=== PATIENT | female | born 1980 | race Caucasian/White ===

== ENCOUNTER 2023-09-29 14:55 | Outpatient (AMB) | payer OTHER, SELFPAY ==
--- NOTE | 2023-09-29 14:59 | A.OFFVIS_ITS ---
Vital Signs 09/29/23 15:09 Height 5 ft 5 in Weight 150 lb 9.211 oz BMI 25.1 BP 90/60 Blood Pressure Location Lt brachial Position Sitting Pulse 75 Pulse Source Pulse Oximeter Pulse Oximetry (%) 98 Oxygen Delivery Method Room Air Intake Visit Reasons: + SATINDER/CM Intake Note: Patient presents for SATINDER. Allergies latex Allergy (Mild, Verified 09/29/23 15:03) Rash Medication List - Last Reconciled 09/29/23 by Radha Cain MD ascorbic acid (vitamin C) 1 g PO DAILY cholecalciferol (vitamin D3) 25 mcg PO BID ferrous sulfate 325 mg PO BID HPI Comments Details: This is a 43-year-old female who presents for evaluation of a positive SATINDER. For the last 6-7 months patient has been having pain in her hands, feet, swelling of her right 3rd MCP. Morning stiffness her hands and feet lasting hours. She has been taking ibuprofen 800 mg Twice daily for her joint pain with some improvement. She was prescribed a prednisone taper briefly dramatic relief but she did not feel well while taking it. She denies any other symptoms such as skin rashes, fevers, weight loss. Denies any blood or frothy urine. Denies any current oral ulcers. Denies any significant hair loss. Patient has melasma on her face since her . She has known iron-deficiency anemia that has been attributed to heavy menses and copper IUD. Not want a medicated IUD as she wanted to avoid hormones. She is unaware of any family history of an autoimmune rheumatic disease. Denies any history of DVT/PE. 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 Female Reproductive History Menstrual Total pregnancies: 6 Number of Living Children: 3 Ab induced: 2 Ab spontaneous: 1 Review of Systems Const Denies fever(s) and Denies weight loss Musc Reports arthralgias, Reports joint swelling and Reports stiffness Skin/Breast Denies photosensitivity and Denies rash Physical Exam Vital Signs: Last Vital Signs Pulse 75 09/29/23 15:09 BP 90/60 09/29/23 15:09 Pulse Ox 98 09/29/23 15:09 Oxygen Delivery Method Room Air 09/29/23 15:09 BMI result Body Mass Index 25.1 Const General: cooperative, healthy appearing and comfortable Nutritional Appearance: average body habitus Orientation/consciousness: patient oriented x3 Limitations: no limitations HEENT Head: Yes normocephalic and Yes atraumatic Mouth: moist mucous membranes Resp Effort & Inspection: normal respiratory effort and able to speak in complete sentences Auscultation: clear to auscultation bilaterally Cardio Rate: regular rate Rhythm: regular rhythm GI Inspection: No distended Palpation (GI): Soft to palpation and nontender Skin Other: Melasma on face Neuro General: patient oriented x3 Extrem Other: Minimal right wrist swelling and pain with flexion and extension No tenderness No left wrist tenderness swelling or pain with flexion-extension Right 3rd MCP swelling and tenderness Few tender flexor tendons right hand osteoarthritic changes of both hands with prominent Heberden's nodes Normal range of motion of shoulders without pain Negative rotator cuff provocative maneuvers bilaterally No elbow pain with flexion and extension bilaterally No knee pain with full flexion-extension Right foot bunion and bunionette No MTP tenderness and negative MTP squeeze test bilaterally Normal nailfold capillaroscopy Results Reviewed Results Reviewed: Labs 06/2023? SATINDER 1-2560 speckled RF negative? Lyme screen negative? ESR 44 Uric acid 3.2 Ferritin 4 X-RAY EXAM OF HAND, 3+ VIEWS Exam Date: 07/15/2023 10:17 AM Ordering Diagnosis: Hand and foot pain, unspecified laterality ? ? Right hand, 3 views. History 3rd metacarpophalangeal joint pain and swelling. ? There is no evidence of fractures, dislocations or abnormal soft tissue calcifications.? There? is no evidence of bone erosions. ? CONCLUSIONS: Normal radiographs of the right hand. Assessment & Plan Assessment & Plan (1) SATINDER positive: Code(s): R76.8 - Other specified abnormal immunological findings in serum Category: Medical Plan: This is a 43-year-old female who presents for evaluation of a positive SATINDER in the context of bilateral hand and feet pain and stiffness, on exam she has right 3rd MCP swelling. Clinical picture consistent with new onset inflammatory arthritis. Will order further sub serologies to better understand her underlying autoimmune process. Follow-up after blood work is completed Plan I spent 46 minutes reviewing patient's chart, evaluating patient, ordering diagnostic workup, counseling patient and documenting in the chart Orders: Orders SATINDER Reflex Titer and Pattern Today M32.9 - Systemic lupus erythematosus, unspecified Anti DNA DS Antibody Today M32.9 - Systemic lupus erythematosus, unspecified Complement C3 Today M32.9 - Systemic lupus erythematosus, unspecified Complement C4 Today M32.9 - Systemic lupus erythematosus, unspecified Erythrocyte Sedimentation Rate Today M32.9 - Systemic lupus erythematosus, unspecified Protein Creatinine Ratio, Ur Today M32.9 - Systemic lupus erythematosus, unspecified Complete Blood Count Auto Diff Today M06.9 - Rheumatoid arthritis, unspecified T Spot TB Today Z11.7 - Encounter for testing for latent tuberculosis infection Angiotensin Converting Enzyme Today D86.9 - Sarcoidosis, unspecified Beta-2 Glycoprotein Antibody Today D68.62 - Lupus anticoagulant syndrome Lupus Anticoagulant Panel Today D68.62 - Lupus anticoagulant syndrome Anti Extractable Nuclear Ag Today M32.9 - Systemic lupus erythematosus, unspecified C Reactive Protein Today M32.9 - Systemic lupus erythematosus, unspecified DNA Double Stranded-Crithidia Today M32.9 - Systemic lupus erythematosus, unspecified Sjogren's Antibodies Today M32.9 - Systemic lupus erythematosus, unspecified UA w Microscopic Today M32.9 - Systemic lupus erythematosus, unspecified Cyclic Citrullinated Peptide Today M06.9 - Rheumatoid arthritis, unspecified Comprehensive Met. Panel Today M06.9 - Rheumatoid arthritis, unspecified Hepatitis A,B,C Profile Today Z11.59 - Encounter for screening for other viral diseases Immunofixation Pnl, Serum Today M06.9 - Rheumatoid arthritis, unspecified HIV Ab/Ag Today Z11.59 - Encounter for screening for other viral diseases Protein Electrophoresis, Serum Today M06.9 - Rheumatoid arthritis, unspecified Cardiolipin Antibodies Today D68.62 - Lupus anticoagulant syndrome Scleroderma 12 Panel Today M34.9 - Systemic sclerosis, unspecified Coding Level of Care Code New Pt Level 4 (17696) Diagnoses SATINDER positive R76.8
[2023-09-29 15:09] VITALS: BP 90/60; PULSE 75; O2SAT 98; BMI 25.1
== END 2023-09-29 15:39 | disposition home or self-care (01) ==
PROVIDERS: PCP Internal Medicine; Visit Provider Student in an Organized Health Care Education/Training Program
DX: R76.8 Other specified abnormal immunological findings in serum (principal)
CPT/HCPCS: 99204

== ENCOUNTER 2023-09-29 14:55 | Outpatient (REF) | payer OTHER, SELFPAY ==
[2023-09-29 16:39] LABS: MANUAL DIFF FLAG NO
[2023-09-29 16:45] LABS: Appearance Urine Clear; Color Urine Yellow; Glucose Urine UA Negative (Negative); Leukocyte Esterase Urine Trace (Negative); Nitrite Urine Negative (Negative); PH 5.5 (5.0-9.0); UMIC TRIGGER UA YES; Urine Blood Large (3+) (Negative); Urine Ketones Negative (Negative); Urine Protein Negative (Neg-Trace)
[2023-09-29 16:47] LABS: Bacteria Urine None Seen (None Seen); Hyaline Casts Urine 0-2 /LPF (0-2); RBC Urine >20 /HPF (0-2); WBC Urine 0-5 /HPF (0-5)
[2023-09-29 17:11] LABS: Creatinine Urine 43.95 mg/dL; Total Protein Urine Random < 7 mg/dL (<12)
[2023-09-29 17:23] LABS: Basophils Absolute Auto 0.1 X10*3/uL (0.0-0.2); Basophils Percent Auto 0.9 % (0-2); Eosinophils Absolute Auto 0.5 X10*3/uL (0.0-0.4); Eosinophils Percent Auto 5.9 % (0-4); Hematocrit 37.6 % (37.0-47.0); Hemoglobin 12.2 g/dl (12.0-16.0); Imm Gran Abs Auto 0.02 X10*3/uL (0.00-0.03); Imm Gran Pct Auto 0.3 % (0.0-0.4); Mean Corpuscular HGB Conc 32.4 g/dl (31.0-35.0); Mean Corpuscular Hemoglobin 28.1 pg (27.0-33.0); Mean Corpuscular Volume 86.6 fL (80.0-98.0); Mean Platelet Volume 9.2 fL (9.4-12.3); Monocytes Absolute Auto 0.6 X10*3/uL (0.1-1.2); Monocytes Percent Auto 8.2 % (2-11); Neutrophils Absolute Auto 4.7 x10*3/uL (2.0-8.3); Neutrophils Percent Auto 59.7 % (45-73); Platelet Count 471 X10*3/uL (160-400); Red Blood Count 4.34 X10*6/uL (4.20-5.50); Red Cell Distribution Width 15.6 % (11.0-16.0); White Blood Count 7.8 X10*3/uL (4.8-10.8)
[2023-09-29 17:40] LABS: Alanine Aminotransferase 7 U/L (0-31); Albumin Level 4.3 g/dL (3.5-5.0); Alkaline Phosphatase 58 U/L (39-117); Anion Gap 12 (12-20); Aspartate Amino Transferase 14 U/L (5-31); Bilirubin Total 0.1 mg/dL (0.0-1.0); Blood Urea Nitrogen 10 mg/dL (9-16); C Reactive Protein 0.24 mg/dL (< or = 0.50); Calcium 9.2 mg/dL (8.4-10.2); Carbon Dioxide 23 mmol/L (22-29); Chloride 109 mmol/L (96-108); Estimated Glomerular Filt Rate > 60; Glucose Random 90 mg/dL (60-115); Potassium 4.1 mmol/L (3.3-5.1); Sodium 140 mmol/L (135-145); Total Protein 7.7 g/dL (6.5-8.0)
[2023-09-29 18:27] LABS: Erythrocyte Sedimentation Rate 17 MM/HR (0-20)
[2023-09-30 08:17] LABS: HBS Num1 > 1000.00 mIU/mL (0-7.99); HBc Num1 0.18 S/CO (0.00-0.79); HBsAGNum1 0.29 S/CO (0.00-0.99); HIV AB/AG Nonreactive (Nonreactive); HIV Num 1 0.06 S/CO (0.00-0.99); Hepatitis A Antibody IgM 0.15 Index (0-0.79); Hepatitis B Core Antibody Nonreactive (Nonreactive); Hepatitis B Surface Antigen Negative (Negative); ~HepC Num1 0.12 S/CO (0.00-0.79); ~Hepatitis A Antibody IgM Nonreactive (Nonreactive); ~Hepatitis B Surface Antibody REACTIVE (Nonreactive); ~Hepatitis C Antibody Nonreactive (Nonreactive)
[2023-09-30 20:24] LABS: Cardiolipin IgG Ab <2.0 GPL-U/mL; Cardiolipin IgM Ab 2.2 MPL-U/mL
[2023-09-30 21:02] LABS: Anti DNA DS Antibody 2 IU/mL; Antibody to SS-A Antigen >8.0 POS AI (<1.0 NEG); Antibody to SS-B Antigen <1.0 NEG AI (<1.0 NEG); SM/Ribonucleoprotein Ab <1.0 NEG AI (<1.0 NEG); Smith Protein <1.0 NEG AI (<1.0 NEG)
[2023-10-01 08:48] LABS: Complement C3 59 mg/dL (83-193)
[2023-10-01 20:24] LABS: Cyclic Citrullinated Peptide >250 UNITS
[2023-10-01 22:28] LABS: IgA 248 mg/dL (47-310); IgG 1328 mg/dL (600-1640); IgM 89 mg/dL (50-300)
[2023-10-01 22:32] LABS: TS Negative Control Passed; TS Panel A 0; TS Panel B 0; TS Positive Control Passed; TSpotTB Negative (Negative)
[2023-10-02 20:07] LABS: Angiotensin Converting Enzyme 15 U/L (9-67)
[2023-10-03 18:22] LABS: Beta-2 Glycoprotein IgA <2.0 U/mL (<20.0); Beta-2 Glycoprotein IgG <2.0 U/mL (<20.0); Beta-2 Glycoprotein IgM 2.6 U/mL (<20.0)
[2023-10-05 21:19] LABS: Prot Elec - Alpha1 0.3 g/dL (0.2-0.3); Prot Elec - Alpha2 0.6 g/dL (0.5-0.9); Prot Elec - Beta 1 0.4 g/dL (0.4-0.6); Prot Elec - Beta 2 0.4 g/dL (0.2-0.5); Prot Elec - Gamma 1.2 g/dL (0.8-1.7)
[2023-10-06 16:04] LABS: DNAds, Crithidia Antibody Positive (Negative)
[2023-10-06 16:32] LABS: DNAds, Crithidia Antibody 1:20 titer (<1:10)
[2023-10-07 05:53] LABS: PTT (LAC) Screen 30 sec (<=40)
[2023-10-09 14:33] LABS: Centromere Protein A Ab <11 SI (<11); Centromere Protein B Ab <11 SI (<11); Fibrillarin Ab <11 SI (<11); PM SCL 100 Ab <11 SI (<11); PM SCL 75 Ab <11 SI (<11); RNA Polymerase III RP11 Ab <11 SI (<11); RNA Polymerase III RP155 Ab <11 SI (<11); SCL-70 Extractable Nuclear Ab <11 SI (<11); Th-To Ab <11 SI (<11); U1 SNRNP RNP 70KD <11 SI (<11); U1 SNRNP RNP A <11 SI (<11); U1 SNRNP RNP C <11 SI (<11)
[2023-10-09 15:44] LABS: Anti Nuclear Antibody Pattern Nuclear, Speckled; Anti Nuclear Antibody Screen POSITIVE (NEGATIVE)
== END 2023-09-29 14:56 | disposition home or self-care (01) ==
LOC: HO.LAB 14:55
PROVIDERS: PCP Internal Medicine; Visit Provider Student in an Organized Health Care Education/Training Program
DX: Z11.4 Encounter for screening for human immunodeficiency virus [HIV] (principal); Z11.59 Encounter for screening for other viral diseases; Z11.1 Encounter for screening for respiratory tuberculosis; M32.9 Systemic lupus erythematosus, unspecified; D68.62 Lupus anticoagulant syndrome; M34.9 Systemic sclerosis, unspecified; M06.9 Rheumatoid arthritis, unspecified; D86.9 Sarcoidosis, unspecified; R76.8 Other specified abnormal immunological findings in serum; Z72.89 Other problems related to lifestyle
CPT/HCPCS: 36415; 80053; 81001; 82164; 82570; 82784; 84156; 84165; 84182; 85025; 85597; 85598; 85613; 85652; 85730; 86038; 86039; 86140; 86146; 86147; 86160; 86200; 86225; 86235; 86255; 86334; 86481; 86704; 86706; 86709; 86803; 87340; 87389

== ENCOUNTER 2023-12-02 10:14 | Outpatient (AMB) | payer OTHER, SELFPAY ==
[2023-12-02 10:19] VITALS: BP 92/58; PULSE 59; O2SAT 100; BMI 25.3
--- NOTE | 2023-12-02 10:19 | A.OFFVIS_ITS ---
Vital Signs 12/02/23 10:19 Height 5 ft 5 in Weight 152 lb BMI 25.3 BP 92/58 L Blood Pressure Location Lt brachial Position Sitting Pulse 59 Pulse Source Pulse Oximeter Pulse Oximetry (%) 100 Oxygen Delivery Method Room Air Intake Visit Reasons: SATINDER +ve Intake Note: Patient is here for test results after blood work, she tested + SATINDER. Allergies latex Allergy (Mild, Verified 12/02/23 10:23) Rash Medication List - Last Reconciled 12/02/23 by Radha Cain MD ascorbic acid (vitamin C) 1 g PO DAILY ascorbic acid-collagen 30-833.3 mg (Collagen Skin Renewal) tabs PO biotin mcg PO cholecalciferol (vitamin D3) 25 mcg PO BID ferrous sulfate 325 mg PO BID hydroxychloroquine Take 2 tabs daily x5 days a week and 1 tab daily x2 days a week prednisone Take 2 tabs daily for 1 month then remain on 1 tab daily HPI Comments Details: This is a 43-year-old female who presents for follow-up after completion of her diagnostic workup. She has been taking prednisone as prescribed. She has been taking 5 mg daily. She states that the prednisone completely took the pain swelling and numbness away of her hands and feet. She stopped it 2 days ago and symptoms returned. She denies any other symptoms. Initial history: This is a 43-year-old female who presents for evaluation of a positive SATINDER. For the last 6-7 months patient has been having pain in her hands, feet, swelling of her right 3rd MCP. Morning stiffness her hands and feet lasting hours. She has been taking ibuprofen 800 mg Twice daily for her joint pain with some improvement. She was prescribed a prednisone taper briefly dramatic relief but she did not feel well while taking it. She denies any other symptoms such as skin rashes, fevers, weight loss. Denies any blood or frothy urine. Denies any current oral ulcers. Denies any significant hair loss. Patient has melasma on her face since her . She has known iron- deficiency anemia that has been attributed to heavy menses and copper IUD. Not want a medicated IUD as she wanted to avoid hormones. She is unaware of any fa sergio history of an autoimmune rheumatic disease. Denies any history of DVT/PE. 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 Female Reproductive History Menstrual Total pregnancies: 6 Number of Living Children: 3 Ab induced: 2 Ab spontaneous: 1 Review of Systems Const Denies fever(s) and Denies weight loss Musc Reports arthralgias, Reports joint swelling and Reports stiffness Skin/Breast Denies photosensitivity and Denies rash Physical Exam Vital Signs: Last Vital Signs Pulse 59 12/02/23 10:19 BP 92/58 L 12/02/23 10:19 Pulse Ox 100 12/02/23 10:19 Oxygen Delivery Method Room Air 12/02/23 10:19 BMI result Body Mass Index 25.3 Const General: cooperative, healthy appearing and comfortable Nutritional Appearance: average body habitus Orientation/consciousness: patient oriented x3 Limitations: no limitations HEENT Head: Yes normocephalic and Yes atraumatic Mouth: moist mucous membranes Resp Effort & Inspection: normal respiratory effort and able to speak in complete sentences Auscultation: clear to auscultation bilaterally Cardio Rate: regular rate Rhythm: regular rhythm GI Inspection: No distended Palpation (GI): Soft to palpation and nontender Skin Other: Melasma on face Neuro General: patient oriented x3 Extrem Other: Minimal right wrist swelling and pain with flexion and extension No tenderness No left wrist tenderness swelling or pain with flexion-extension Right 3rd MCP swelling and tenderness Few tender flexor tendons right hand osteoarthritic changes of both hands with prominent Heberden's nodes Normal range of motion of shoulders without pain Negative rotator cuff provocative maneuvers bilaterally No elbow pain with flexion and extension bilaterally No knee pain with full flexion-extension Right foot bunion and bunionette No MTP tenderness and negative MTP squeeze test bilaterally Normal nailfold capillaroscopy Results Reviewed Results Reviewed: Labs 06/2023? SATINDER 1-2560 speckled RF negative? Lyme screen negative? ESR 44 Uric acid 3.2 Ferritin 4 X-RAY EXAM OF HAND, 3+ VIEWS Exam Date: 07/15/2023 10:17 AM Ordering Diagnosis: Hand and foot pain, unspecified laterality ? ? Right hand, 3 views. History 3rd metacarpophalangeal joint pain and swelling. ? There is no evidence of fractures, dislocations or abnormal soft tissue calcifications.? There? is no evidence of bone erosions. ? CONCLUSIONS: Normal radiographs of the right hand. Assessment & Plan Assessment & Plan (1) SLE (systemic lupus erythematosus): Comment: onset 02/2023 (swollen hands on exam, +++SATINDER +DsDNA +++SSa low C3 & low C4) Code(s): M32.9 - Systemic lupus erythematosus, unspecified Category: Medical Plan: This is a 43-year-old female presents for evaluation of a positive SATINDER in the context of pain and swelling of peripheral joints. Labs consistent with Rhupus. Symptoms significantly responsive to prednisone. Patient has an overlap of lupus and rheumatoid arthritis. I Had a long conversation today with patient regarding her diagnosis and its management. Discussed risks and benefits of hydroxychloroquine. Start hydroxychloroquine 400 mg daily x5 days a week and 200 mg daily x2 days a week Prednisone 5 mg daily for 1 month then remain on 2.5 mg daily Labs before next visit in 3 months (2) Seropositive rheumatoid arthritis: Comment: onset 02/2023+++CCP -ve RF HCQ 11/2023 Code(s): M05.9 - Rheumatoid arthritis with rheumatoid factor, unspecified Category: Medical Plan: Hydroxychloroquine is started as mentioned above (3) Long-term use of hydroxychloroquine: Code(s): Z79.899 - Other [facility] (current) drug therapy Category: Medical Plan: Discussed risk of retinopathy associated with hydroxychloroquine. Advised patient to make an appointment with her process validation engineer Plan I spent 46 minutes reviewing patient's chart, evaluating patient, ordering diagnostic workup, counseling patient and documenting in the chart Orders: Orders Anti DNA DS Antibody 3 Months M32.9 - Systemic lupus erythematosus, unspecified Complement C4 3 Months M32.9 - Systemic lupus erythematosus, unspecified Erythrocyte Sedimentation Rate 3 Months M32.9 - Systemic lupus erythematosus, unspecified Protein Creatinine Ratio, Ur 3 Months M32.9 - Systemic lupus erythematosus, unspecified Complement C3 3 Months M32.9 - Systemic lupus erythematosus, unspecified C Reactive Protein 3 Months M32.9 - Systemic lupus erythematosus, unspecified DNA Double Stranded-Crithidia 3 Months M32.9 - Systemic lupus erythematosus, unspecified UA w Microscopic 3 Months M32.9 - Systemic lupus erythematosus, unspecified Medications: New prednisone Take 2 tabs daily for 1 month then remain on 1 tab daily 120 tabs 0RF hydroxychloroquine Take 2 tabs daily x5 days a week and 1 tab daily x2 days a week 144 tabs 0RF Discontinued prednisone Discontinued Reason: Doctor's Order Take 3 tabs daily for 1 week, 2 tabs daily for 1 week, then stay on 1 tab once daily 63 tabs 0RF Coding Level of Care Code Est Pt Level 5 (32339) Diagnoses SLE (systemic lupus erythematosus) M32.9 Seropositive rheumatoid arthritis M05.9 Long-term use of hydroxychloroquine Z79.899
== END 2023-12-02 10:55 | disposition home or self-care (01) ==
PROVIDERS: PCP Internal Medicine; Visit Provider Student in an Organized Health Care Education/Training Program
DX: M32.9 Systemic lupus erythematosus, unspecified (principal); M05.9 Rheumatoid arthritis with rheumatoid factor, unspecified; Z79.899 Other long term (current) drug therapy
CPT/HCPCS: 99215

== ENCOUNTER → 2023-12-02 10:14 | Outpatient (BNVA) | payer OTHER, SELFPAY | PROVIDERS: PCP Internal Medicine; Visit Provider Student in an Organized Health Care Education/Training Program ==

== ENCOUNTER 2024-03-28 10:53 | Outpatient (REF) | payer OTHER, SELFPAY ==
[2024-03-28 12:27] LABS: Appearance Urine Clear; Color Urine Yellow; Glucose Urine UA Negative (Negative); Leukocyte Esterase Urine Negative (Negative); Nitrite Urine Negative (Negative); PH 6.5 (5.0-9.0); UMIC TRIGGER UA YES; Urine Blood Trace (Negative); Urine Ketones Negative (Negative); Urine Protein Negative (Neg-Trace)
[2024-03-28 12:30] LABS: Bacteria Urine None Seen (None Seen); Hyaline Casts Urine 0-2 /LPF (0-2); WBC Urine 0-5 /HPF (0-5)
[2024-03-28 12:55] LABS: C Reactive Protein 0.11 mg/dL (< or = 0.50)
[2024-03-28 13:04] LABS: Erythrocyte Sedimentation Rate 7 MM/HR (0-20)
[2024-03-28 13:12] LABS: Creatinine Urine 122.04 mg/dL; Total Protein Urine Random < 7 mg/dL (<12)
[2024-03-29 09:48] LABS: Complement C3 109 mg/dL (83-193)
[2024-03-29 16:08] LABS: Anti DNA DS Antibody 2 IU/mL
[2024-03-31 17:57] LABS: DNAds, Crithidia Antibody Negative (Negative)
== END 2024-03-28 10:54 | disposition home or self-care (01) ==
LOC: HO.LAB 10:53
PROVIDERS: Visit Provider Student in an Organized Health Care Education/Training Program
DX: M32.9 Systemic lupus erythematosus, unspecified (principal)
CPT/HCPCS: 36415; 81001; 82570; 84156; 85652; 86140; 86160; 86225; 86255

== ENCOUNTER 2024-03-30 10:33 | Outpatient (AMB) | payer OTHER, SELFPAY ==
--- NOTE | 2024-03-30 10:42 | MHC.OFFVIS ---
Vital Signs 03/30/24 10:46 Height 5 ft 5 in Weight 152 lb 8.958 oz BMI 25.4 BP 92/70 Blood Pressure Location Rt brachial Position Sitting Pulse 85 Pulse Source Pulse Oximeter Pulse Oximetry (%) 98 Oxygen Delivery Method Room Air Intake Visit Reasons: Rhupus Intake Note: Patient presents for Rhupus. Allergies latex Allergy (Mild, Verified 03/30/24 10:45) Rash Medication List - Last Reconciled 03/30/24 by Radha Cain MD ascorbic acid (vitamin C) 1 g PO DAILY ascorbic acid-collagen 30-833.3 mg (Collagen Skin Renewal) tabs PO biotin mcg PO cholecalciferol (vitamin D3) 25 mcg PO BID ferrous sulfate 325 mg PO BID hydroxychloroquine Take 2 tabs daily x5 days a week and 1 tab daily x2 days a week HPI Comments Details: This is a 44-year-old female with newly diagnosed Rhupus who presents for follow-up. She has been taking hydroxychloroquine as prescribed, she self discontinued her prednisone about a month ago. She states that her joints have been doing much better overall. She continues to have intermittent pain in her feet in the morning with walking. Swelling of the joints has improved. She has not been taking any ibuprofen. She has noticed some dry mouth recently. She take sips of water regularly throughout the day. Denies dry eyes Initial history: This is a 43-year-old female who presents for evaluation of a positive SATINDER. For the last 6-7 months patient has been having pain in her hands, feet, swelling of her right 3rd MCP. Morning stiffness her hands and feet lasting hours. She has been taking ibuprofen 800 mg Twice daily for her joint pain with some improvement. She was prescribed a prednisone taper briefly dramatic relief but she did not feel well while taking it. She denies any other symptoms such as skin rashes, fevers, weight loss. Denies any blood or frothy urine. Denies any current oral ulcers. Denies any significant hair loss. Patient has melasma on her face since her . She has known iron-deficiency anemia that has been attributed to heavy menses and copper IUD. Not want a medicated IUD as she wanted to avoid hormones. She is unaware of any family history of an autoimmune rheumatic disease. Denies any history of DVT/PE. 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 Female Reproductive History Menstrual Total pregnancies: 6 Number of Living Children: 3 Ab induced: 2 Ab spontaneous: 1 Review of Systems Const Denies fever(s) and Denies weight loss Musc Reports arthralgias, Denies joint swelling and Denies stiffness Skin/Breast Denies photosensitivity and Denies rash Physical Exam Vital Signs: Last Vital Signs Pulse 85 03/30/24 10:46 BP 92/70 03/30/24 10:46 Pulse Ox 98 03/30/24 10:46 Oxygen Delivery Method Room Air 03/30/24 10:46 BMI result Body Mass Index 25.4 Const General: cooperative, healthy appearing and comfortable Nutritional Appearance: average body habitus Orientation/consciousness: patient oriented x3 Limitations: no limitations HEENT Head: Yes normocephalic and Yes atraumatic Mouth: moist mucous membranes Resp Effort & Inspection: normal respiratory effort and able to speak in complete sentences Auscultation: clear to auscultation bilaterally Cardio Rate: regular rate Rhythm: regular rhythm GI Inspection: No distended Palpation (GI): Soft to palpation and nontender Skin Other: Melasma on face Neuro General: patient oriented x3 Extrem Other: No wrist tenderness, swelling or pain with flexion-extension bilaterally Very subtle right 3rd MCP swelling but no tenderness Normal bilateral hand acid bath mixer strength Normal range of motion of shoulders without pain Negative rotator cuff provocative maneuvers bilaterally No elbow pain with flexion and extension bilaterally No knee pain with full flexion-extension Right foot bunion and bunionette No MTP tenderness and negative MTP squeeze test bilaterally Normal nailfold capillaroscopy Assessment & Plan Assessment & Plan (1) SLE (systemic lupus erythematosus): Comment: onset 02/2023 (swollen hands on exam, +++SATINDER +DsDNA +++SSa low C3 & low C4) Code(s): M32.9 - Systemic lupus erythematosus, unspecified Category: Medical Plan: This is a 43-year-old female presents for evaluation of a positive SATINDER in the context of pain and swelling of peripheral joints. Labs consistent with Rhupus. Symptoms significantly responsive to prednisone. Patient has an overlap of lupus and rheumatoid arthritis. Patient has been complaining of dry mouth. Her oral mucosa is moist on exam. No dry eyes. Advised patient that she diet have a positive anti SSA antibody she may have some overlap with Sjogren's. At this time her sicca symptoms are not severe. Discussed measures for dry mouth such as Biotene mouthwash, Biotene spray, Biotene toothpaste, sips of water throughout the day Continue to monitor patient's sicca symptoms Continue hydroxychloroquine 400 mg daily x5 days a week and 200 mg daily x2 days a week Labs before next visit in 4 months (2) Seropositive rheumatoid arthritis: Comment: onset 02/2023+++CCP -ve RF HCQ 11/2023 PDN tapered off 02/2024 Code(s): M05.9 - Rheumatoid arthritis with rheumatoid factor, unspecified Category: Medical Plan: Doing much better overall. (3) Long-term use of hydroxychloroquine: Code(s): Z79.899 - Other [employer] (current) drug therapy Category: Medical Plan: Discussed risk of retinopathy associated with hydroxychloroquine. She was evaluated by cleaning porter, we will attempt to retrieve records Plan I spent 26 minutes reviewing patient's chart, evaluating patient, ordering diagnostic workup, counseling patient and documenting in the chart Orders: Orders Anti DNA DS Antibody 4 Months M05.9 - Rheumatoid arthritis with rheumatoid factor, unspecified, M32.9 - Systemic lupus erythematosus, unspecified, Z79.899 - Other alf (current) drug therapy Complement C3 4 Months M05.9 - Rheumatoid arthritis with rheumatoid factor, unspecified, M32.9 - Systemic lupus erythematosus, unspecified, Z79.899 - Other alf (current) drug therapy Complement C4 4 Months M05.9 - Rheumatoid arthritis with rheumatoid factor, unspecified, M32.9 - Systemic lupus erythematosus, unspecified, Z79.899 - Other alf (current) drug therapy C Reactive Protein 4 Months M05.9 - Rheumatoid arthritis with rheumatoid factor, unspecified, M32.9 - Systemic lupus erythematosus, unspecified, Z79.899 - Other alf (current) drug therapy Protein Creatinine Ratio, Ur 4 Months M05.9 - Rheumatoid arthritis with rheumatoid factor, unspecified, M32.9 - Systemic lupus erythematosus, unspecified, Z79.899 - Other [employer] (current) drug therapy Erythrocyte Sedimentation Rate 4 Months M05.9 - Rheumatoid arthritis with rheumatoid factor, unspecified, M32.9 - Systemic lupus erythematosus, unspecified, Z79.899 - Other [employer] (current) drug therapy DNA Double Stranded-Crithidia 4 Months M05.9 - Rheumatoid arthritis with rheumatoid factor, unspecified, M32.9 - Systemic lupus erythematosus, unspecified, Z79.899 - Other [employer] (current) drug therapy UA w Microscopic 4 Months M05.9 - Rheumatoid arthritis with rheumatoid factor, unspecified, M32.9 - Systemic lupus erythematosus, unspecified, Z79.899 - Other [employer] (current) drug therapy Complete Blood Count Auto Diff 4 Months M05.9 - Rheumatoid arthritis with rheumatoid factor, unspecified, M32.9 - Systemic lupus erythematosus, unspecified, Z79.899 - Other alf (current) drug therapy Comprehensive Met. Panel 4 Months M05.9 - Rheumatoid arthritis with rheumatoid factor, unspecified, M32.9 - Systemic lupus erythematosus, unspecified, Z79.899 - Other [employer] (current) drug therapy Coding Level of Care Code Est Pt Level 4 (65327) Diagnoses SLE (systemic lupus erythematosus) M32.9 Seropositive rheumatoid arthritis M05.9 Long-term use of hydroxychloroquine Z79.899
[2024-03-30 10:46] VITALS: BP 92/70; PULSE 85; O2SAT 98; BMI 25.4
== END 2024-03-30 11:10 | disposition home or self-care (01) ==
PROVIDERS: PCP Internal Medicine; Visit Provider Student in an Organized Health Care Education/Training Program
DX: M32.9 Systemic lupus erythematosus, unspecified (principal); M05.79 Rheumatoid arthritis with rheumatoid factor of multiple sites without organ or systems involvement; Z79.899 Other long term (current) drug therapy
CPT/HCPCS: 99214

== ENCOUNTER 2024-08-02 12:54 | Outpatient (REF) | payer OTHER, SELFPAY ==
[2024-08-02 13:24] LABS: MANUAL DIFF FLAG NO
[2024-08-02 13:45] LABS: Basophils Percent Auto 0.7 % (0-2); Eosinophils Absolute Auto 0.1 X10*3/uL (0.0-0.4); Eosinophils Percent Auto 1.7 % (0-4); Hematocrit 37.4 % (37.0-47.0); Hemoglobin 12.6 g/dl (12.0-16.0); Imm Gran Abs Auto 0.02 X10*3/uL (0.00-0.03); Imm Gran Pct Auto 0.3 % (0.0-0.4); Lymphocytes Absolute Auto 1.6 X10*3/uL (1.2-4.9); Lymphocytes Percent Auto 27.6 % (20-40); Mean Corpuscular HGB Conc 33.7 g/dl (31.0-35.0); Mean Corpuscular Hemoglobin 30.7 pg (27.0-33.0); Mean Corpuscular Volume 91.2 fL (80.0-98.0); Mean Platelet Volume 9.3 fL (9.4-12.3); Monocytes Absolute Auto 0.5 X10*3/uL (0.1-1.2); Neutrophils Absolute Auto 3.6 x10*3/uL (2.0-8.3); Neutrophils Percent Auto 60.7 % (45-73); Platelet Count 347 X10*3/uL (160-400); Red Cell Distribution Width 12.4 % (11.0-16.0); White Blood Count 5.9 X10*3/uL (4.8-10.8)
--- OUTSIDE RECORDS SUMMARY | 2024-08-02 13:58 | XMS_ITS | Clinical Summary ---
Author Organization [facility] Address [address] [place] [address] Phone Care Team Providers Care [employer] Vice President Name Role Phone Ra Fan MD Primary Care Pr ovider Allergies No known active allergies Medications BIOTIN ORAL Take by mouth. Act mee argin/glut/CaHM B/collag/mv-min (LUCIE, WITH COLLAGEN, ORAL) Take by mouth. Active cholecalciferol (VITAMIN D-3) 50 mcg (2,000 unit) capsule TAKE 1 CAPSULE BY MOUTH DAILY. MAINTENANCE, TAKE ONE CAPSULE DAILY 1 Active copper (ParaGard T 380A) 380 square mm IUD 1 Device by Intrauterine route Once. Active ferrous sulfate 325 mg (65 mg iron) EC tablet Take 1 Tablet by mouth 2 times daily (with meals). 4 Active hydroxychloroqu ine (PLAQUENIL) 200 mg tablet Take 1 tablet (200 mg total) by mouth 1 (one) time each day. 2 tablets for 5 days, 1 tablet for 2 days 4 Active ascorbic acid (VITAMIN C) 500 mg CR capsule Take 1 capsule (500 mg total) by mouth 1 (one) time each day. Active Active Problems Problem Noted Date Diagnosed Date Lupus (systemic lupus erythe matosus) ([facility] V24, [facility] V28) 05/11/2024 Assessment & Plan (05/11/2024 9:38 AM EST): Continue hydroxychloroquine as prescribed by rheumatology Rheumatoid arthritis ([facility] V24, [facility] V28) 05/11/2024 Assessment & Plan (05/11/2024 9:38 AM EST): Having some pain/stiffness/swelling particularly in the right hand. She will follow-up with her special education secretary at [facility]. Iron deficiency anemia 07/24/2023 Overview (02/23/2024): with menorrhagia d/t Paraguard IUD Assessment & Plan (05/11/2024 9:38 AM EST): Continue ferrous sulfate and daily Vitamin C Orders: Ferritin; Future Iron and TIBC; Future CBC and differential; Future Vitamin D deficiency 03/21/2020 Assessment & Plan (05/11/2024 9:38 AM EST): Continue vitamin D 4000U daily Orders: Vitamin D 25 hydroxy; Future Encounters Date Type Department Care Team Description 06/21/2024 12:29 PM EDT - 06/21/2024 11:59 PM EDT Hospital Encounter Radiology Department - [address] [phone] Encounter for well woman exam with routine gynecological exam; Intrauterine contraceptive device threads lost, initial encounter Discharge Disposition: Home or Self Care 06/09/2024 8:45 AM EDT Office Visit Obstetrics & Gynecology - [address] [phone] Khloe Newman CNM Encounter for well woman exam with routine gynecological exam (Primary Dx); Screening breast examination; Screening for malignant neoplasm of cervix; Intrauterine contraceptive device threads lost, initial encounter; Screen for STD (sexually transmitted disease) 05/11/2024 9:00 AM EST Office Visit Adult Medicine [address] [phone] Ra Fan MD Annual physical exam (Primary Dx); Vitamin D deficiency; Other iron deficiency anemia; Systemic lupus erythematosus, unspecified SLE type, unspecified organ involvement status (CMS/HCC V24, CMS/HCC V28); Rheumatoid arthritis involving both hands, unspecified whether rheumatoid factor present (CMS/HCC V24, CMS/HCC V28); Need for hepatitis C screening test; Screening for metabolic disorder 05/10/2024 Community Care Management [facility] [address] [place] [address] Oliver Negrete from Last 3 Months Immunizations Name Administration Dates Next Due Influenza Quadravalent, MDCK , 0.5ml, preservative free (Flucelvax) 6mo and older 03/10/2024 Influenza Quadrivalent, 0.5m l, preservative free (Fluarix; FluLaval; Fluzone) ages 6mo and older (Afluria) 3yo and older 02/05/2023 Influenza, Unspecified 01/26/2023 Pfizer SARS-CoV-2 COVID-19, mRNA, LNP-S, preservative free 11/17/2020,10/26/2020 Surgical History Surgery Date Site/Laterality Comments OTHER SURGICAL HISTORY PROCEDURE: DENIES PREVIOUS SURGERY Medical History Medical History Date Comments History of anemia DX:History of anemia History of vitamin D deficiency DX:History of vitamin D deficiency Encounter for insertion of P araGard IUD 12/07/2018 DX:Encounter for insertion o f ParaGard IUD Lupus Rheumatoid arthritis (CMS/HC C V24, [facility] V28) Anemia Family History Medical History Relation Name Comments No Known Problems Brother x2 Stroke Maternal Grandmother [place] Hypertension Mother Mercedez No Known Problems Sister x4 Breast cancer Neg Hx Colon cancer Neg Hx Ovarian cancer Neg Hx Relation Name Status Comments Brother x2 Alive Father Maternal Grandfather Maternal Grandmother [place] Mother Mercedez Alive Paternal Grandfather Paternal Grandmother Sister x4 Alive Social History Tobacco Use Types Packs/Day Years Used Date Smoking Tobacco: Former Cigarettes Q uit: 03/23/2012 Smokeless Tobacco: Never Tobacco Cessation:Counseling Given: Not Answered Comments:Quit tobacco use about 15 years ago Alcohol Use Standard Drinks/Week Comments No 0 (1 standard drink = 0.6 oz pur e alcohol) Housing Instability Answer Date Recorde d Are you worried that in the next 2 months you may not have stable housing? No 06/02/2024 Food Access & Nutrition Answer Date Rec orded Do you have access to a vari ety of food including fruits and vegetables? Yes 06/02/2024 Access to Healthcare Answer Date Record ed Within the last 3 months, ho w many times did you visit the emergency department for your medical care? 0 06/02/2024 Health Literacy Answer Date Recorded How often do you need to hav e someone help you when you read instructions, pamphlets, or other written material from your doctor or pharmacy? Never 06/02/2024 Caregiver: How often do you need to have someone help you when you read instructions, pamphlets, or other written material from your doctor or pharmacy? Not on file 06/02/2024 Financial Risk Answer Date Recorded How hard is it for you to pa y for the very basics like food, housing, medical care, and air conditioning / heating? Not very hard 06/02/2024 Transportation Answer Date Recorded Has the lack of transportati on kept you from meetings, work, or from getting things needed for daily living? No Has the lack of transportati on kept you from medical appointments or from getting medications? No 06/02/2024 Social Isolation Answer Date Recorded How often do you feel lonely or isolated from th ose around you? Never 06/02/2024 Food Risk Answer Date Recorded Within the past 12 months we worried whether our food would run out before we got money to buy more. Never true 06/02/2024 Within the past 12 months th e food we bought just didn't last and we didn't have money to get more. Never true 06/02/2024 Dependent Care Answer Date Recorded Do you need help finding or paying for care for your loved ones. For example, early childhood special educator or elderly care for an older adult? No 06/02/2024 Education Answer Date Recorded Do you think completing more education or training, like finishing a GED, going to college, or learning a trade, would be helpful for you? N/A 06/02/2024 Employment and Income Answer Date Recor ded During the last four weeks, have you been actively looking for work? No 06/02/2024 Living Situation Answer Date Recorded What is your living situation? 0 06/02/2024 Comments No Sex and Gender Information Value Date Recorded Sex Assigned at Female 06/09/2024 3:28 PM EDT Legal Sex Female 4:13 AM EST Gender Identity Not on file Sexual Orientation Not on file Occupation Industry Job Start Date Job End Date bib [employer] Not on file Not on file Not on file Obstetrics History Para Term AB IAB SAB Ectopic Multiple Livin g Live Births 3 3 3 3 3 Date Outcome GA Total Labor Labor/2nd/3rd Weight Sex Type Anes PTL Juliet A1 A5 Name Clin 1999 Term F Vag-S pont Living 2008 Term M Vag-S pont Living 2017 Term F Vag-S pont Living Last Filed Vital Signs Vital Sign Reading Time Taken Comments Blood Pressure 94/70 06/09/2024 8:54 AM EDT Pulse 83 06/09/2024 8:54 AM EDT Temperature 36.9 ??C (98.5 ??F) 05/11/2024 9:06 AM ES T Respiratory Rate 16 05/11/2024 9:06 AM EST Oxygen Saturation - - Inhaled Oxygen Concentration - - Weight 68.9 kg (151 lb 12.8 oz) 06/09/2024 8:54 AM EDT Height 166.4 cm (5' 5.5 ) 06/09/2024 8:54 AM EDT Body Mass Index 24.88 06/09/2024 8:54 AM EDT Plan of Treatment Upcoming Encounters Date Type Department Care Team (Late st Contact Info) Description 05/17/2025 12:00 PM EST Office Visit Adult Medicine [address] [phone] Ra Fan MD [address] [place] [phone] Health Maintenance Due Date Last Done Comments DTaP,Tdap,and Td Vaccines (1 - Tdap) 2000 HIV Screening 04/22/2019 Social Influencers of Health Screening 06/02/2025 06/02/2024 Depression Screening 06/08/2025 06/08/2024, 05/11/2024 Breast Cancer Screening 04/13/2026 04/13/19, 04/01/2023, 03/26/2022 Cholesterol Screening (Lipid Panel) 05/11/2029 05/11/2024, 04/28/2023 Cervical Cancer Screening: HPV 06/09/2029 06/09/2024, 12/11/2021 COVID-19 Vaccine Discontinued 11/17/2020, 10/26/2020 Influenza Vaccine Completed 03/10/2024, 02/05/2023, 01/26/2023 Hepatitis C Screening Completed 05/11/2024 HIB Vaccines Aged Out No longer eligi ble based on patient's age to complete this topic HPV Vaccines Aged Out No longer eligi ble based on patient's age to complete this topic Hepatitis A Vaccines Aged Out No long er eligible based on patient's age to complete this topic Hepatitis B Vaccines Discontinued IPV Vaccines Aged Out No longer eligi ble based on patient's age to complete this topic MMR Vaccines Aged Out No longer eligi ble based on patient's age to complete this topic Meningococcal ACWY Vaccine Aged Out N o longer eligible based on patient's age to complete this topic Meningococcal B Vaccine Aged Out No l onger eligible based on patient's age to complete this topic Pneumococcal Vaccine: Pediatrics (0 to 5 Years) and At-Risk Patients (6 to 64 Years) Aged Out No longer eligible based on patient's age to complete this topic RSV Immunization Patients Under 20 months Aged Out No longer eligible based on patient's age to complete this topic Varicella Vaccines Aged Out No longer eligible based on patient's age to complete this topic Procedures Procedure Name Priority Date/Time Associated Diagnosis Comments US PELVIS TRANSVAGINAL NON OB Routine 06/21/2024 1:22 PM EDT Encounter for well woman exam with routine gynecological exam Intrauterine contraceptive device threads lost, initial encounter CHLAMYDIA TRACHOMATIS AND NEISSERIA GONORRHOEAE PCR Routine 06/09/2024 9:20 AM EDT Encounter for well woman exam with routine gynecological exam Screen for STD (sexually transmitted disease) PAP SMEAR Routine 06/09/2024 9:09 AM EDT Encounter for well woman exam with routine gynecological exam Screening for malignant neoplasm of cervix HPV WITH REFLEX GENOTYPE Routine 06/09/2024 9:09 AM EDT Encounter for well woman exam with routine gynecological exam Screening for malignant neoplasm of cervix CBC WITH AUTO DIFFERENTIAL Routine 05/11/2024 9:53 AM EST Other iron deficiency anemia FERRITIN Routine 05/11/2024 9:53 AM EST Other iron deficiency anemia IRON AND TIBC Routine 05/11/2024 9:53 AM EST Other iron deficiency anemia CBC AND DIFFERENTIAL Routine 05/11/2024 9:53 AM EST Other iron deficiency anemia HEPATITIS C ANTIBODY Routine 05/11/2024 9:53 AM EST Need for hepatitis C screening test THYROID STIMULATING HORMONE WITH REFLEX TO FREE T4 AND FREE T3 Routine 05/11/2024 9:53 AM EST Screening for metabolic disorder HEMOGLOBIN A1C Routine 05/11/2024 9:53 AM EST Screening for metabolic disorder LIPID PANEL WITH REFLEX TO DIRECT LDL Routine 05/11/2024 9:53 AM EST Screening for metabolic disorder COMPREHENSIVE METABOLIC PANEL Routine 05/11/2024 9:53 AM EST Screening for metabolic disorder VITAMIN D 25 HYDROXY Routine 05/11/2024 9:53 AM EST Vitamin D deficiency MG MAMMO DIGITAL SCREENING W DIONISIO BILAT Routine 04/13/2024 9:45 AM EST Encounter for screening mammogram for breast cancer from Last 3 Months or Most Recently Relevant to Health Maintenance Results * US Pelvis Transvaginal Non OB (06/21/2024 1:22 PM EDT) Anatomical Region Laterality Modality Body Ultrasound 06/21/2024 1:42 PM EDT Impressions 06/21/2024 1:50 PM EDT IUD appears to be in satisfactory position. -------- FINAL REPORT -------- Dictated By: Patricia Mckinley Dictated Date: 06/21/2024 13:42 ET Assigned Physician: Patricia Mckinley Reviewed and Electronically Signed By: Patricia Mckinley Signed Date: 06/21/2024 13:50 ET Workstation ID: [id number] Transcribed By: Self Edit Transcribed Date: 06/21/2024 13:46 ET Narrative 06/21/2024 1:50 PM EDT US PELVIS TRANSVAGINAL NON OB PELVIC ULTRASOUND History: ??Lost IUD strings. Procedure: Real-time Doppler pelvic and transvaginal ultrasound. Comparison: None. FINDINGS: The uterus measures 8.7 x 5.2 x 6.2 cm for a volume of 147 cc. Tip of the IUD is 6 mm from the most fundal aspect of the endometrium. Procedure Note Patricia Mckinley MD - 06/21/2024 US PELVIS TRANSVAGINAL NON OB PELVIC ULTRASOUND History: Lost IUD strings. Procedure: Real-time Doppler pelvic and transvaginal ultrasound. Comparison: None. FINDINGS: The uterus measures 8.7 x 5.2 x 6.2 cm for a volume of 147 cc. Tip of the IUD is 6 mm from the most fundal aspect of the endometrium. IMPRESSION: IUD appears to be in satisfactory position. -------- FINAL REPORT -------- Dictated By: Patricia Mckinley Dictated Date: 06/21/2024 13:42 ET Assigned Physician: Patricia Mckinley Reviewed and Electronically Signed By: Patricia Mckinley Signed Date: 06/21/2024 13:50 ET Workstation ID: [id number] Transcribed By: Self Edit Transcribed Date: 06/21/2024 13:46 ET [facility] Final Resul t * Chlamydia trachomatis and Neisseria gonorrhoeae molecular study (06/09/2024 9:20 AM EDT) Neisseria gonorrhoeae PCR Negative Negative LAB MOLECULAR DIAGNOSTICS METHOD 06/09/2024 2:32 PM EDT [facility] Chlamydia trachomatis PCR Negative Negative LAB MOLECULAR DIAGNOSTICS METHOD 06/09/2024 2:32 PM EDT [facility] Swab Cervix uteri structure / Unknown Non-blood Collection / Unknown 06/09/2024 9:20 AM EDT 06/09/2024 11:55 AM EDT Khloe BURLESON LAB MICROBIOLOGY - GENERAL OR DERABLES Final Result [facility] [address] [place] [address], [place] [phone] * HPV with reflex genotype (06/09/2024 9:09 AM EDT) HPV Negative Negative LAB MICROBIOLOGY METHOD 06/10/2024 2:36 PM EDT [facility] Brushing/Spatula Cervix uteri structure / Unknown 06/09/2024 9:09 AM EDT 06/10/2024 7:49 AM EDT Khloe BURLESON LAB MOLECULAR DIAGNOSTICS ORD ERABLES Final Result Performing Organization Address City/[facility]/ZIP Co de Phone Number [facility] [address] [place] [address], [place] [phone] * Pap smear (06/09/2024 9:09 AM EDT) Interpretation Negative for intraepithelial lesion or malignancy 06/13/2024 2:25 PM EDT [facility] General Categorization Negative 06/13/2024 2:25 PM EDT [facility] Other Findings Fungal organisms morphologically consistent with Leanna spp 06/13/2024 2:25 PM EDT [facility] LMP 05/25/2024 06/13/2024 2:25 PM EDT [facility] Specimen Adequacy Satisfactory for evaluation, endocervical/fong sformation zone component absent 06/13/2024 2:25 PM EDT [facility] Pap Methodology Liquid Based Pap Test 06/13/2024 2:25 PM EDT [facility] Disclaimer The Pap test is a screening test which carries an inherent false negative rate. These test results should be correlated with the patient's clinical findings and history. This Pap test was processed using an automated screening system. Technical cytopathology services provided by [facility], at [address], [place] [address] (CLIA # [id number]/Heriberto Laguerre MD, Patrol Lady.) 06/13/2024 2:25 PM EDT [facility] Console Pap Interpretation Reported 06/13/2024 2:25 PM EDT [facility] Brushing/Spatula Cervix uteri structure / Unknown 06/09/2024 9:09 AM EDT 06/10/2024 7:49 AM EDT Khloe Newman CNM LAB CYTOLOGY ORDERABLES Final Result Performing Organization Address City/[facility]/ZIP Co de Phone Number [facility] [address] [place] [address], [place] [phone] * Hepatitis C antibody (05/11/2024 9:53 AM EST) [facility] Hepatitis C Antibody Negative Negative LAB CHEMISTRY METHOD 05/11/2024 12:54 PM EST [facility] Blood Venous blood specimen / Unknown Venipuncture / Unknown 05/11/2024 9:53 AM EST 05/11/2024 9:53 AM EST Ra Fan MD LAB BLOOD ORDERA BLES Final Result Performing Organization Address City/[facility]/ZIP Co de Phone Number [facility] [address] [place] [address], [place] [phone] * Thyroid stimulating hormone with reflex to free t4 and free t3 (05/11/2024 9:53 AM EST) [facility] TSH 1.69 0.40 - 4.00 mcIU/mL LAB CHEMISTRY METHOD 05/11/2024 12:16 PM [facility] Blood Venous blood specimen / Unknown Venipuncture / Unknown 05/11/2024 9:53 AM EST 05/11/2024 9:53 AM EST us Ra Fan MD LAB BLOOD ORDERA BLES Final Result [facility] [address] [place] [address], [place] [phone] * Lipid panel with reflex to direct LDL (05/11/2024 9:53 AM EST) Cholesterol 160 0 - 200 mg/dL LAB CHEMISTRY METHOD 05/11/2024 12:57 PM [facility] Triglycerides 44 0 - 150 mg/dL LAB CHEMISTRY METHOD 05/11/2024 12:57 PM [facility] HDL 55 >=40 mg/dL LAB CHEMISTRY METHOD 05/11/2024 12:57 PM [facility] LDL Calculated 96 0 - 100 mg/dL LAB CHEMISTRY METHOD 05/11/2024 12:57 PM [facility] VLDL Cholesterol Jah 8.8 mg/dL LAB CHEMISTRY METHOD 05/11/2024 12:57 PM [facility] Non HDL Chol. (LDL+VLDL) 105 <145 mg/dL LAB CHEMISTRY METHOD 05/11/2024 12:57 PM [facility] Chol/HDL Ratio 2.9 0.0 - 4.4 LAB CHEMISTRY METHOD 05/11/2024 12:57 PM [facility] Blood Venous blood specimen / Unknown Venipuncture / Unknown 05/11/2024 9:53 AM EST 05/11/2024 9:53 AM EST us Oyililiane Fan MD LAB BLOOD ORDERA BLES Final Result [facility] [address] [place] [address], * CBC auto differential (05/11/2024 9:53 AM EST) [facility] Signature WBC 5.6 4.8 - 10.8 K/mcL LAB HEMETOLOGY METHOD 05/11/2024 1:07 PM [facility] RBC 4.20 3.80 - 4.80 M/mcL LAB HEMETOLOGY METHOD 05/11/2024 1:07 PM [facility] Hemoglobin 13.1 11.5 - 16.0 g/dL LAB HEMETOLOGY METHOD 05/11/2024 1:07 PM [facility] Hematocrit 40.4 35.0 - 47.0 % LAB HEMETOLOGY METHOD 05/11/2024 1:07 PM [facility] MCV 96.0 79.0 - 98.0 FL LAB HEMETOLOGY METHOD 05/11/2024 1:07 PM [facility] MCH 31.1 27.0 - 32.0 pcg LAB HEMETOLOGY METHOD 05/11/2024 1:07 PM [facility] MCHC 32.4 32.0 - 37.0 g/dL LAB HEMETOLOGY METHOD 05/11/2024 1:07 PM [facility] RDW 11.7 11.0 - 15.0 % LAB HEMETOLOGY METHOD 05/11/2024 1:07 PM [facility] Platelets 379 130 - 400 K/mcL LAB HEMETOLOGY METHOD 05/11/2024 1:07 PM [facility] MPV 9.9 7.0 - 11.0 FL LAB HEMETOLOGY METHOD 05/11/2024 1:07 PM [facility] NRBC 0.0 <1.0 % LAB HEMETOLOGY METHOD 05/11/2024 1:07 PM [facility] NRBC Absolute 0.00 <0.10 K/mcL LAB HEMETOLOGY METHOD 05/11/2024 1:07 PM [facility] Neutrophils Relative 58.4 % LAB HEMETOLOGY METHOD 05/11/2024 1:07 PM [facility] Lymphocytes Relative 26.1 % LAB HEMETOLOGY METHOD 05/11/2024 1:07 PM [facility] Monocytes Relative 12.6 % LAB HEMETOLOGY METHOD 05/11/2024 1:07 PM [facility] Eosinophils Relative 1.6 % LAB HEMETOLOGY METHOD 05/11/2024 1:07 PM [facility] Basophils Relative 0.9 % LAB HEMETOLOGY METHOD 05/11/2024 1:07 PM [facility] Immature Granulocytes Relative 0.4 % LAB HEMETOLOGY METHOD 05/11/2024 1:07 PM [facility] Neutrophils Absolute 3.29 1.50 - 7.00 K/mcL LAB HEMETOLOGY METHOD 05/11/2024 1:07 PM [facility] Lymphocytes Absolute 1.47 1.00 - 5.00 K/mcL LAB HEMETOLOGY METHOD 05/11/2024 1:07 PM [facility] Monocytes Absolute 0.71 0.20 - 1.00 K/mcL LAB HEMETOLOGY METHOD 05/11/2024 1:07 PM [facility] Eosinophils Absolute 0.09 0.00 - 0.50 K/mcL LAB HEMETOLOGY METHOD 05/11/2024 1:07 PM [facility] Basophils Absolute 0.05 0.00 - 0.20 K/mcL LAB HEMETOLOGY METHOD 05/11/2024 1:07 PM [facility] Immature Granulocytes Absolute 0.02 0.00 - 0.03 K/mcL LAB HEMETOLOGY METHOD 05/11/2024 1:07 PM EST [facility] Blood Venous blood specimen / Unknown Venipuncture / Unknown 05/11/2024 9:53 AM EST 05/11/2024 9:53 AM EST Ra Fan MD LAB BLOOD ORDERA BLES Final Result Performing Organization Address [facility]/ZIP Co de Phone Number [facility] [address] [place] [address], [place] [phone] * (ABNORMAL) Iron and TIBC (05/11/2024 9:53 AM EST) Iron 42 40 - 150 mcg/dL LAB CHEMISTRY METHOD 05/11/2024 12:17 PM EST [facility] TIBC 307 250 - 450 mcg/dL LAB CHEMISTRY METHOD 05/11/2024 12:17 PM EST [facility] Iron Saturation 14(L) 15 - 50 % LAB CHEMISTRY METHOD 05/11/2024 12:17 PM EST [facility] Blood Venous blood specimen / Unknown Venipuncture / Unknown 05/11/2024 9:53 AM EST 05/11/2024 9:53 AM EST Ra Fan MD LAB BLOOD ORDERA BLES Final Result Performing Organization Address City/[facility]/ZIP Co de Phone Number [facility] [address] [place] [address], [place] [phone] * Vitamin D 25 hydroxy (05/11/2024 9:53 AM EST) Vit D, 25-Hydroxy 50.8 30.0 - 80.0 ng/mL LAB CHEMISTRY METHOD 05/11/2024 12:16 PM EST [facility] Blood Venous blood specimen / Unknown Venipuncture / Unknown 05/11/2024 9:53 AM EST 05/11/2024 9:53 AM EST Ra Fan MD LAB BLOOD ORDERA BLES Final Result Performing Organization Address City/[facility]/ZIP Co de Phone Number [facility] [address] [place] [address], [place] [phone] * Hemoglobin A1c (05/11/2024 9:53 AM EST) Pathologist [facility] Hemoglobin A1C 5.0 <6.5 % LAB CHEMISTRY METHOD 05/11/2024 2:01 PM EST [facility] Mean Bld Glu Estim. 97 mg/dL LAB CHEMISTRY METHOD 05/11/2024 2:01 PM EST [facility] Blood Venous blood specimen / Unknown Venipuncture / Unknown 05/11/2024 9:53 AM EST 05/11/2024 9:53 AM EST us Ra Fan MD LAB BLOOD ORDERA BLES Final Result Performing Organization Address [facility]/ZIP Co de Phone Number [facility] [address] [place] [address], [place] [phone] * Ferritin (05/11/2024 9:53 AM EST) Pathologist [facility] Ferritin 27 8 - 252 ng/mL LAB CHEMISTRY METHOD 05/11/2024 12:17 PM EST [facility] Blood Venous blood specimen / Unknown Venipuncture / Unknown 05/11/2024 9:53 AM EST 05/11/2024 9:53 AM EST us Ra Fan MD LAB BLOOD ORDERA BLES Final Result Performing Organization Address City/[facility]/ZIP Co de Phone Number [facility] [address] [place] [address], [place] [phone] * (ABNORMAL) Comprehensive metabolic panel (05/11/2024 9:53 AM EST) Sodium 139 133 - 145 mmol/L LAB CHEMISTRY METHOD 05/11/2024 12:17 PM [facility] Potassium 4.2 3.5 - 5.5 mmol/L LAB CHEMISTRY METHOD 05/11/2024 12:17 PM [facility] Chloride 111(H) 96 - 110 mmol/L LAB CHEMISTRY METHOD 05/11/2024 12:17 PM [facility] CO2 22 21 - 32 mmol/L LAB CHEMISTRY METHOD 05/11/2024 12:17 PM [facility] Anion Gap 6 3 - 11 LAB CHEMISTRY METHOD 05/11/2024 12:17 PM [facility] Glucose 87 70 - 100 mg/dL LAB CHEMISTRY METHOD 05/11/2024 12:17 PM [facility] BUN 11 5 - 25 mg/dL LAB CHEMISTRY METHOD 05/11/2024 12:17 PM [facility] Creatinine 0.66 0.50 - 1.10 mg/dL LAB CHEMISTRY METHOD 05/11/2024 12:17 PM [facility] eGFR 112 >=60 mL/min/1. 73m2 LAB CHEMISTRY METHOD 05/11/2024 12:17 PM [facility] Comment:Calculation based on the??Chronic Kidney Disease Epidemiology Collaboration (CKD-EPI) equation refit??without adjustment for race. BUN/Creatinine Ratio 16.7 LAB CHEMISTRY METHOD 05/11/2024 12:17 PM [facility] Calcium 9.2 8.5 - 10.5 mg/dL LAB CHEMISTRY METHOD 05/11/2024 12:17 PM [facility] AST (SGOT) 19 10 - 42 unit/L LAB CHEMISTRY METHOD 05/11/2024 12:17 PM [facility] ALT (SGPT) 17 10 - 60 unit/L LAB CHEMISTRY METHOD 05/11/2024 12:17 PM EST [facility] Alkaline Phosphatase 49 42 - 121 unit/L LAB CHEMISTRY METHOD 05/11/2024 12:17 PM [facility] Total Protein 7.2 6.0 - 8.0 g/dL LAB CHEMISTRY METHOD 05/11/2024 12:17 PM EST [facility] Albumin 4.0 3.2 - 5.0 g/dL LAB CHEMISTRY METHOD 05/11/2024 12:17 PM [facility] Total Bilirubin 0.2 0.0 - 1.4 mg/dL LAB CHEMISTRY METHOD 05/11/2024 12:17 PM [facility] Blood Venous blood specimen / Unknown Venipuncture / Unknown 05/11/2024 9:53 AM EST 05/11/2024 9:53 AM EST Ra Fan MD LAB BLOOD ORDERA BLES Final Result [facility] [address] [place] [address], [place] [phone] * MG Mammo Digital Screening w Dionisio bilat (04/13/2024 9:45 AM EST) Anatomical Region Laterality Modality Breast Bilateral Mammography 04/13/2024 12:0 1 PM EST Impressions 04/13/2024 12:07 PM EST BILATERAL BREASTS: Negative, no evidence of malignancy. Normal interval follow- up is recommended in 12 months. BREAST DENSITY: C - The breasts are heterogeneously dense which may obscure small masses. BI-RADS CATEGORY: 1 - NEGATIVE RECOMMENDATION: Screening bilateral mammogram is recommended in 1 year. Mammo Location: [facility], [address] [place] [address], [address], . -------- FINAL REPORT -------- Dictated By: Ric Herman Dictated Date: 04/13/2024 12:01 ET Assigned Physician: Ric Herman Reviewed and Electronically Signed By: Ric Herman Signed Date: 04/13/2024 12:07 ET Workstation ID: [id number] Transcribed By: Self Edit Transcribed Date: 04/13/2024 12:01 ET Narrative 04/13/2024 12:07 PM EST STUDY: Bilateral screening mammography with tomosynthesis and CAD TECHNIQUE: Bilateral full-field digital screening mammography is obtained and read in conjunction with computer-aided detection. ??Tomosynthesis as well as 2-D C view imaging were obtained. ?? COMPARISON: April 01, 2023 and March 26, 2022 BILATERAL BREASTS: No significant masses, suspicious calcifications or other abnormalities are seen in either breast. Procedure Note Ric Herman MD - 04/13/2024 STUDY: Bilateral screening mammography with tomosynthesis and CAD TECHNIQUE: Bilateral full-field digital screening mammography is obtainedand read in conjunction with computer-aided detection. Tomosynthesis aswell as 2-D C view imaging were obtained. COMPARISON: April 01, 2023 and March 26, 2022 BILATERAL BREASTS: No significant masses, suspicious calcifications orother abnormalities are seen in either breast. IMPRESSION: BILATERAL BREASTS: Negative, no evidence of malignancy. Normal intervalfollow-up is recommended in 12 months. BREAST DENSITY: C - The breasts are heterogeneously dense which mayobscure small masses. BI-RADS CATEGORY: 1 - NEGATIVE RECOMMENDATION: Screening bilateral mammogram is recommended in 1 year. Mammo Location: [facility], [address] [place] [address], [id number], . -------- FINAL REPORT -------- Dictated By: Ric Herman Dictated Date: 04/13/2024 12:01 ET Assigned Physician: Ric Herman Reviewed and Electronically Signed By: Ric Herman Signed Date: 04/13/2024 12:07 ET Workstation ID: [id number] Transcribed By: Self Edit Transcribed Date: 04/13/2024 12:01 ET Ra Fan MD IMG BI PROCEDURE S Final Result from Last 3 Months or Most Recently Relevant to Health Maintenance Insurance [employer] Care Teams [employer] Vice President Relationship Specialty Start Date End Date Ra Fan MD [address], [place] PCP - General Internal Medicine 10/14/21
[2024-08-02 14:06] LABS: Appearance Urine Clear; Color Urine Yellow; Glucose Urine UA Negative (Negative); Leukocyte Esterase Urine Trace (Negative); Nitrite Urine Negative (Negative); UMIC TRIGGER UA YES; Urine Blood Negative (Negative); Urine Ketones Negative (Negative); Urine Protein Negative (Neg-Trace)
[2024-08-02 14:19] LABS: Alanine Aminotransferase 13 U/L (0-31); Albumin Level 4.3 g/dL (3.5-5.0); Alkaline Phosphatase 46 U/L (39-117); Anion Gap 12 (12-20); Aspartate Amino Transferase 23 U/L (5-31); Bilirubin Total 0.3 mg/dL (0.0-1.0); Blood Urea Nitrogen 9 mg/dL (9-16); C Reactive Protein < 0.10 mg/dL (< or = 0.50); Calcium 9.3 mg/dL (8.4-10.2); Carbon Dioxide 23 mmol/L (22-29); Chloride 109 mmol/L (96-108); Estimated Glomerular Filt Rate > 60; Glucose Random 68 mg/dL (60-115); Potassium 3.7 mmol/L (3.3-5.1); Sodium 140 mmol/L (135-145); Total Protein 7.2 g/dL (6.5-8.0)
[2024-08-02 14:23] LABS: Bacteria Urine 2+ (None Seen); Hyaline Casts Urine 0-2 /LPF (0-2); RBC Urine 0-2 /HPF (0-2)
[2024-08-02 14:27] LABS: Erythrocyte Sedimentation Rate 7 MM/HR (0-20)
[2024-08-02 14:41] LABS: Creatinine Urine 74.77 mg/dL; Total Protein Urine Random < 7 mg/dL (<12)
[2024-08-03 20:29] LABS: Complement C3 113 mg/dL (83-193)
[2024-08-05 08:38] LABS: DNAds, Crithidia Antibody Negative (Negative)
[2024-08-09 13:02] LABS: Anti DNA DS Antibody 3 IU/mL
== END 2024-08-02 12:55 | disposition home or self-care (01) ==
LOC: HO.LAB 12:54
PROVIDERS: Visit Provider Student in an Organized Health Care Education/Training Program
DX: M32.9 Systemic lupus erythematosus, unspecified (principal); M05.9 Rheumatoid arthritis with rheumatoid factor, unspecified; Z79.899 Other long term (current) drug therapy
CPT/HCPCS: 36415; 80053; 81001; 82570; 84156; 85025; 85652; 86140; 86160; 86225; 86255

== ENCOUNTER 2024-08-17 10:16 | Outpatient (AMB) | payer OTHER, SELFPAY ==
--- NOTE | 2024-08-17 10:28 | MHC.OFFVIS ---
Vital Signs 08/17/24 10:35 Height 5 ft 5 in Weight 150 lb 12.739 oz BMI 25.1 BP 92/60 Blood Pressure Location Lt brachial Position Sitting Pulse 78 Pulse Source Pulse Oximeter Pulse Oximetry (%) 98 Oxygen Delivery Method Room Air Intake Visit Reasons: Rhupus Intake Note: Patient presents for Rhupus follow up. Allergies latex Allergy (Mild, Verified 08/17/24 10:31) Rash Medication List - Last Reconciled 08/17/24 by Rosie Grant MD ascorbic acid (vitamin C) 1 g PO DAILY ascorbic acid-collagen 30-833.3 mg (Collagen Skin Renewal) tabs PO biotin mcg PO cholecalciferol (vitamin D3) 25 mcg PO BID ferrous sulfate 325 mg PO BID hydroxychloroquine Take 2 tabs daily x5 days a week and 1 tab daily x2 days a week HPI Comments Details: Patient is a 44 y.o. female with SLE/RA overlap here today for follow up Interval History: Patient last seen 03/30/[address] Cain. At that time she was following for her SLE/RA overlap on hydroxychloroquine. 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 For the last 6-7 months patient has been having pain in her hands, feet, swelling of her right 3rd MCP. Morning stiffness her hands and feet lasting hours. She has been taking ibuprofen 800 mg Twice daily for her joint pain with some improvement. She was prescribed a prednisone taper briefly dramatic relief but she did not feel well while taking it. She denies any other symptoms such as skin rashes, fevers, weight loss. Denies any blood or frothy urine. Denies any current oral ulcers. Denies any significant hair loss. Patient has melasma on her face since her . She has known iron-deficiency anemia that has been attributed to heavy menses and copper IUD. Not want a medicated IUD as she wanted to avoid hormones. She is unaware of any family history of an autoimmune rheumatic disease. Denies any history of DVT/PE. 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 Review of Systems Const Details: Review of Systems Constitutional: Denies fever, chills, weight loss ENT: Denies vision changes, eye pain or eye redness, dental caries, dry mouth GI: Denies nausea, vomiting, diarrhea, abdominal pain, change in BM Pulm: Denies SOB, VALERA, hemoptysis, wheezing Cards: Denies chest pain, palpitations Skin: Denies Raynaud's, rash, nail changes, photosensitivity, CELL BUILDER: Denies headaches, weakness, paresthesias, recurrent falls MSK: as per HPI All other systems reviewed and are unremarkable except noted above Physical Exam Vital signs reviewed Physical Examination CONSTITUITIONAL Patient alert and cooperative. Well appearing and in no apparent painful distress HEENT Conjunctiva and sclera clear. ?Pupils equal round and reactive to light. ?No lymphadenopathy. ? CHEST/RESPIRATORY SYSTEM Normal respiratory effort and able to speak in complete sentences. ?Clear to auscultation bilaterally. ?No crackles, rales, rhonchi, wheezes heard. CARDIAC SYSTEM Regular rate and rhythm. ?S1 and S2 heard no murmurs. ?Radial pulses intact bilaterally MSK Hands: ?Able to make a fist. No synovitis noted to the MCPs, PIPs or DIPs. ?No tenderness to palpation of these joints. Synovial hypertrophy noted to right 3rd MCP Wrists: ?Full range of motion at the wrists without pain. ?No tenderness to palpation or synovitis noted to the wrists. Elbows: Full range of motion without pain. No tenderness, weakness, swelling, increased warmth or erythema. Shoulders: Full range of active range of motion without pain. No tenderness, weakness, swelling, increased warmth or erythema. Hips: Full range of motion without pain. Hip bursa: No tenderness to palpation Knees: ?Full range of motion. ?No tenderness, swelling, increased warmth or erythema.?Crepitations felt bilaterally Ankles: Full range of motion. ?No tenderness, swelling, increased warmth or erythema.? Feet: ?Negative squeeze test. ?No tenderness to palpation or swelling of the MTPs. Tender points:?No tenderness to palpation of the bilateral trapezius, supraspinatus, greater trochanters, anterior costochondral junctions, bilateral gluteal areas, bilateral suboccipital muscle insertions SKIN Melasma noted to face Results Reviewed Results Reviewed: Laboratory Tests 08/02/24 13:22 WBC 5.9 RBC 4.10 L Hgb 12.6 Hct 37.4 Plt Count 347 D ESR 7 Sodium 140 Potassium 3.7 Chloride 109 H Carbon Dioxide 23 BUN 9 Creatinine 0.66 AST 23 ALT 13 Alkaline Phosphatase 46 C-Reactive Protein < 0.10 Urine Labs 08/02/24 13:17 Urine Color Yellow Urine Appearance Clear Ur Specific [place] 1.020 Urine Protein Negative U Random Total Protein < 7 Rheumatology Labs 09/29/23 09/29/23 08/02/24 15:36 16:36 13:22 Cycl Citrul Peptide IgG >250 H SATINDER Screen POSITIVE A SATINDER Titer 1:320 H SATINDER Pattern Nuclear, Speckled A SS-A/Ro Antibody >8.0 POS A Double Strand DNA Ab 2 3 Anti-ds DNA Titer (Crith) 1:20 H Anti-ds DNA (Crithidia) Positive A Complement C3 59 L 113 Complement C4 10 L 16 Assessment & Plan Assessment & Plan (1) SLE (systemic lupus erythematosus): Comment: onset 02/2023 (swollen hands on exam, +++SATINDER +DsDNA +++SSa low C3 & low C4) Code(s): M32.9 - Systemic lupus erythematosus, unspecified Category: Medical Qualifiers: Systemic lupus erythematosus type: other Systemic lupus erythematosus organ involvement: other Qualified Code(s): M32.19 - Other organ or system involvement in systemic lupus erythematosus Plan: #SLE Patient is a 44 y.o. female with RA/SLE overlap here today for follow up. Patient with overall improvement in her symptoms. Currently has synovial hypertrophy without TTP of the right 3rd MCP that does intermittently hurt. No evidence of active synovitis at this time Plan - Hydroxychloroquine 400mg x 5 days a week and 200mg x 2 days a week - RTC 6 months - Labs before visit: CBC, CMP, ESR, CRP, C3, C4, dsDNA, UA, UPC (2) Seropositive rheumatoid arthritis: Comment: onset 02/2023+++CCP -ve RF HCQ 11/2023 PDN tapered off 02/2024 Code(s): M05.9 - Rheumatoid arthritis with rheumatoid factor, unspecified Category: Medical Plan: Patient is a 44 y.o. female with RA/SLE overlap here today for follow up. Patient with overall improvement in her symptoms. Currently has synovial hypertrophy without TTP of the right 3rd MCP that does intermittently hurt. No evidence of active synovitis at this time Plan - Hydroxychloroquine 400mg x 5 days a week and 200mg x 2 days a week - RTC 6 months - Labs before visit: CBC, CMP, ESR, CRP, C3, C4, dsDNA, UA, UPC (3) Long-term use of hydroxychloroquine: Code(s): Z79.899 - Other assisted (current) drug therapy Category: Medical Plan: #Long-term Use of Hydroxychloroquine Discussed with patient the risks and benefits of hydroxychloroquine in managing the rheumatic condition Benefits include: - Reduced pain, reduce mortality, maintenance of remission and reduction of flares Risks include: - GI upset, skin hyperpigmentation, retinal toxicity (especially after more than 5 years of use), myopathy Advised yearly ophthalmology visits Plan I spent 30 minutes reviewing the record and labs, taking a history, examining the patient, discussing the treatment plan, ordering diagnostic work up and documenting in the medical record Coding Level of Care Code Est Pt Level 4 (06843) Complex EM visit Add On G2211 Diagnoses Other systemic lupus erythematosus with other organ involvement M32.19 Systemic lupus erythematosus type: other Systemic lupus erythematosus organ involvement: other Seropositive rheumatoid arthritis M05.9 Long-term use of hydroxychloroquine Z79.899
[2024-08-17 10:35] VITALS: BP 92/60; PULSE 78; O2SAT 98; BMI 25.1
--- OUTSIDE RECORDS SUMMARY | 2024-08-17 11:15 | XMS_ITS | Clinical Summary ---
Author Organization [facility] Address [address] [place] [address] Phone Care Team Providers Care Internet Marketing Specialist Name Role Phone Ra Fan MD Primary [...] Diagnosed Date Lupus (systemic lupus erythe matosus) ([facility] V24, [facility] V28) 05/11/2024 Assessment & Plan (05/11/2024 9:38 AM EST): Continue hydroxychloroquine as prescribed by rheumatology Rheumatoid arthritis ([facility] V24, [facility] V28) 05/11/2024 Assessment & Plan (05/11/2024 9:38 AM EST): Having some pain/stiffness/swelling particularly in the right hand. 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 Iron deficiency anemia 07/24/2023 Overview (02/23/2024): [...] 11:59 PM EDT Hospital Encounter Radiology Department [address] [address] Encounter for well woman exam with routine gynecological exam; Intrauterine contraceptive device threads lost, initial encounter Discharge Disposition: Home or Self Care 06/09/2024 8:45 AM EDT Office Visit Obstetrics & Gynecology - [address] [phone] Khloe Newman CNM Encounter for well woman exam with routine gynecological exam (Primary Dx); Screening breast examination; Screening for malignant neoplasm of cervix; Intrauterine contraceptive device threads lost, initial encounter; Screen for STD (sexually transmitted disease) from Last 3 Months Immunizations Name Administration Dates Next Due Influenza Quadravalent, MDCK , 0.5ml, preservative free (Flucelvax) 6mo and older 03/10/2024 Influenza Quadrivalent, 0.5m l, preservative free (Fluarix; FluLaval; Fluzone) ages 6mo and older (Afluria) 3yo and older 02/05/2023 Influenza, Unspecified 01/26/2023 [employer] SARS-CoV-2 COVID-19, mRNA, LNP-S, preservative free 11/17/2020,10/26/2020 Surgical History Surgery Date Site/Laterality Comments OTHER SURGICAL HISTORY PROCEDURE: DENIES PREVIOUS SURGERY Medical History Medical History Date Comments History of anemia DX:History of anemia History of vitamin D deficiency DX:History of vitamin D deficiency Encounter for insertion of P araGard IUD 12/07/2018 DX:Encounter for insertion o f ParaGard IUD Lupus Rheumatoid arthritis (CMS/HC C V24, CMS/HCC V28) Anemia Family History Medical History Relation [...] care for your loved ones. For example, maternal child nurse or elderly care for an older adult? [...] 12:00 PM EST Office Visit Adult Medicine [facility] [address] [place] [phone] Ra Fan MD [address] [place] [id number] Health Maintenance Due Date Last Done Comments [...] exam Screening for malignant neoplasm of cervix HEPATITIS C ANTIBODY Routine 05/11/2024 9:53 AM EST Need for hepatitis C screening test LIPID PANEL WITH REFLEX TO DIRECT LDL Routine 05/11/2024 9:53 AM EST Screening for metabolic disorder MG MAMMO DIGITAL SCREENING W DIONISIO BILAT [...] Signed Date: 06/21/2024 13:50 ET Workstation ID: [id number] Transcribed By: Self Edit Transcribed Date: 06/21/2024 [...] Signed Date: 06/21/2024 13:50 ET Workstation ID: [id number] Transcribed By: Self Edit Transcribed Date: 06/21/2024 13:46 ET Khloe Newman CNM [facility] US PROCEDURES Final Resul t * Chlamydia trachomatis and Neisseria gonorrhoeae molecular study (06/09/2024 9:20 AM EDT) Neisseria gonorrhoeae PCR Negative Negative LAB MOLECULAR DIAGNOSTICS METHOD 06/09/2024 2:32 PM EDT [facility] Chlamydia trachomatis PCR Negative Negative LAB MOLECULAR DIAGNOSTICS METHOD 06/09/2024 2:32 PM EDT [facility] Swab Cervix uteri structure / Unknown Non-blood Collection / Unknown 06/09/2024 9:20 AM EDT 06/09/2024 11:55 AM EDT Khloe BURLESON LAB MICROBIOLOGY - GENERAL OR DERABLES Final Result [facility] [address] [place] [address], [place] [phone] * HPV with reflex genotype (06/09/2024 9:09 AM EDT) HPV Negative Negative LAB MICROBIOLOGY METHOD 06/10/2024 2:36 PM EDT [facility] Brushing/Spatula Cervix uteri structure / Unknown 06/09/2024 9:09 AM EDT 06/10/2024 7:49 AM EDT Khloe Newman CNM LAB MOLECULAR DIAGNOSTICS ORD ERABLES Final Result Performing Organization Address City/[facility]/ZIP Co de Phone Number [facility] [address] [place] [address], [place] [phone] * Pap smear (06/09/2024 9:09 AM EDT) Interpretation Negative for intraepithelial lesion or malignancy 06/13/2024 2:25 PM EDT [facility] General Categorization Negative 06/13/2024 2:25 PM EDT [facility] Other Findings Fungal organisms morphologically consistent with Leanna spp 06/13/2024 2:25 PM EDT [facility] LMP 05/25/2024 06/13/2024 2:25 PM EDT [facility] Specimen Adequacy Satisfactory for evaluation, endocervical/fong sformation zone component absent 06/13/2024 2:25 PM EDT [facility] Pap Methodology Liquid Based Pap Test 06/13/2024 2:25 PM EDT [facility] Disclaimer The Pap test is a screening test which carries an inherent false negative rate. These test results should be correlated with the patient's clinical findings and history. This Pap test was processed using an automated screening system. Technical cytopathology services provided by [facility], at [address] [place] [address] (CLIA # [id number]/Heriberto Laguerre MD, [employer].) 06/13/2024 2:25 PM EDT [facility] Console Pap Interpretation Reported 06/13/2024 2:25 PM EDT [facility] Brushing/Spatula Cervix uteri structure / Unknown 06/09/2024 9:09 AM EDT 06/10/2024 7:49 AM EDT us Khloe Newman CNM LAB CYTOLOGY ORDERABLES Final Result Performing Organization Address [facility]/ZIP Co de Phone Number [facility] [address] [place] [address], * Hepatitis C antibody (05/11/2024 9:53 AM EST) Hepatitis C Antibody Negative Negative LAB CHEMISTRY METHOD 05/11/2024 12:54 PM EST [facility] Blood Venous blood specimen / Unknown Venipuncture / Unknown 05/11/2024 9:53 AM EST 05/11/2024 9:53 AM EST Ra Fan MD LAB BLOOD ORDERA BLES Final Result [facility] [address] [place] [address], [place] [phone] * Lipid panel with reflex to direct LDL (05/11/2024 9:53 AM EST) Cholesterol 160 0 - 200 mg/dL LAB CHEMISTRY METHOD 05/11/2024 12:57 PM EST [facility] Triglycerides 44 0 - 150 mg/dL LAB CHEMISTRY METHOD 05/11/2024 12:57 PM EST [facility] HDL 55 >=40 mg/dL LAB CHEMISTRY METHOD 05/11/2024 12:57 PM EST [facility] LDL Calculated 96 0 - 100 mg/dL LAB CHEMISTRY METHOD 05/11/2024 12:57 PM EST [facility] VLDL Cholesterol Jah 8.8 mg/dL LAB CHEMISTRY METHOD 05/11/2024 12:57 PM [facility] Non HDL Chol. (LDL+VLDL) 105 <145 mg/dL LAB CHEMISTRY METHOD 05/11/2024 12:57 PM EST [facility] Chol/HDL Ratio 2.9 0.0 - 4.4 LAB CHEMISTRY METHOD 05/11/2024 12:57 PM EST [facility] Blood Venous blood specimen / Unknown Venipuncture / Unknown 05/11/2024 9:53 AM EST 05/11/2024 9:53 AM EST Ra Fan MD LAB BLOOD ORDERA BLES Final Result [facility] [address] [place] [address], [place] [phone] * MG Mammo Digital Screening w Dionisio [...] is recommended in 1 year. Mammo Location: [facility], [address] [place] [address], [address], . -------- FINAL REPORT -------- Dictated By: Ric Herman Dictated Date: 04/13/2024 12:01 ET Assigned Physician: Ric Herman Reviewed and Electronically Signed By: Ric Herman Signed Date: 04/13/2024 12:07 ET Workstation ID: [id number] Transcribed By: Self Edit Transcribed Date: 04/13/2024 [...] is recommended in 1 year. Mammo Location: [facility], [address] [place] [address], [address], . -------- FINAL REPORT -------- Dictated By: Ric Herman Dictated Date: 04/13/2024 12:01 ET Assigned Physician: Ric Herman Reviewed and Electronically Signed By: Ric Herman Signed Date: 04/13/2024 12:07 ET Workstation ID: [id number] Transcribed By: Self Edit Transcribed Date: 04/13/2024 12:01 ET Ra Fan MD IMG BI PROCEDURE S Final Result from Last 3 Months or Most Recently Relevant to Health Maintenance Insurance [employer] Care Teams Internet Marketing Specialist Relationship Specialty Start Date End Date Ra Fan MD [address] [facility] [place] PCP - General Internal Medicine 10/14/21
== END 2024-08-17 10:50 | disposition home or self-care (01) ==
LOC: HO.RHE 10:16
PROVIDERS: PCP Internal Medicine; Visit Provider Student in an Organized Health Care Education/Training Program
DX: M32.19 Other organ or system involvement in systemic lupus erythematosus (principal); M05.79 Rheumatoid arthritis with rheumatoid factor of multiple sites without organ or systems involvement; Z79.899 Other long term (current) drug therapy
CPT/HCPCS: 99214; G2211

== ENCOUNTER 2024-11-16 08:10 | Outpatient (REF) | payer OTHER, SELFPAY ==
--- OUTSIDE RECORDS SUMMARY | 2024-11-16 08:28 | XMS_ITS | Clinical Summary ---
Author Organization [facility] Address [address] [place] [address] Phone Care Team Providers Care Bunch Maker Hand Name Role Phone Ra Fan MD Primary [...] Diagnosed Date Lupus (systemic lupus erythe matosus) ([facility] V24, [facility] V28) 05/11/2024 Assessment & Plan (05/11/2024 9:38 AM EST): Continue hydroxychloroquine as prescribed by rheumatology Rheumatoid arthritis ([facility] V24, [facility] V28) 05/11/2024 Assessment & Plan (05/11/2024 9:38 AM EST): Having some pain/stiffness/swelling particularly in the right hand. She will follow-up with her stationary equipment mechanic at [facility]. Iron deficiency anemia 07/24/2023 Overview (02/23/2024): with menorrhagia d/t Paraguard IUD Assessment & Plan (05/11/2024 9:38 AM EST): Continue ferrous sulfate and daily Vitamin C Orders: Ferritin; Future Iron and TIBC; Future CBC and differential; Future Vitamin D deficiency 03/21/2020 Assessment & Plan (05/11/2024 9:38 AM EST): Continue vitamin D 4000U daily Orders: Vitamin D 25 hydroxy; Future Immunizations Name Administration Dates Next Due Influenza Quadravalent, MDCK , 0.5ml, preservative free (Flucelvax) 6mo and older 03/10/2024 Influenza Quadrivalent, 0.5m l, preservative free (Fluarix; FluLaval; Fluzone) ages 6mo and older (Afluria) 3yo and older 02/05/2023 Influenza, Unspecified 01/26/2023 [employer] SARS-CoV-2 COVID-19, mRNA, LNP-S, preservative free 11/17/2020,10/26/2020 [...] your loved ones. For example, early childhood lead teacher or elderly care for an older adult? 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 Not on file Not on file Obstetrics History Para Term AB IAB SAB Ectopic Multiple Livin g Live Births 3 3 3 3 3 Date Outcome GA Total Labor Labor//3rd Weight Sex Type Anes PTL Juliet A1 A5 Name Clin 1999 Term F Vag-S pont Living 2008 Term M Vag-S pont Living 2017 Term F Vag-S pont Living Last Filed Vital Signs Vital Sign Reading Time Taken Comments Blood Pressure 94/70 06/09/2024 8:54 AM EDT Pulse 83 06/09/2024 8:54 AM EDT Temperature 36.9 C (98.5 F) 05/11/2024 9:06 AM EST Respiratory Rate 16 05/11/2024 9:06 AM EST [...] 12:00 PM EST Office Visit Adult Medicine [address] [phone] Ra Fan MD [address] [place] [id number] Health Maintenance Due Date Last Done Comments DTaP,Tdap,and Td Vaccines (1 - Tdap) 2000 HIV Screening 04/22/2019 Influenza Vaccine (#1) 2024 , 02/05/2023, 01/26/2023 Social Influencers of Health Screening 06/02/2025 06/02/2024 Breast Cancer Screening 04/13/2026 04/13/19 25, 04/01/2023, 03/26/2022 Cholesterol Screening (Lipid Panel) 05/11/2029 05/11/2024, 04/28/2023 Cervical Cancer Screening: HPV 06/09/2029 06/09/2024, 12/11/2021 COVID-19 Vaccine Discontinued 11/17/2020, 10/26/2020 Hepatitis C Screening Completed 05/11/2024 Depression Screening Completed 06/08/2024 HIB Vaccines Aged Out No longer eligi [...] 5 Years) and At-Risk Patients (6 to 49 Years) Aged Out No longer eligible based on patient's age to complete this topic RSV Immunization Patients Under 20 months Aged Out No longer eligible based on patient's age to complete this topic Varicella Vaccines Aged Out No longer eligible based on patient's age to complete this topic Procedures Procedure Name Priority Date/Time Associated Diagnosis Comments HPV WITH REFLEX GENOTYPE Routine 06/09/2024 9:09 [...] Recently Relevant to Health Maintenance Results * HPV with reflex genotype (06/09/2024 9:09 AM EDT) Pathologist [facility] HPV Negative Negative LAB MICROBIOLOGY METHOD 06/10/2024 2:36 PM EDT [facility] Brushing/Spatula Cervix uteri structure / Unknown 06/09/2024 9:09 AM EDT 06/10/2024 7:49 AM EDT Khloe Newman CNM LAB MOLECULAR DIAGNOSTICS ORD ERABLES Final Result Performing Organization Address City/[facility]/ZIP Co de Phone Number [facility] [address] [place] [address], [place] [phone] * Hepatitis C antibody (05/11/2024 9:53 AM EST) [facility] Hepatitis C Antibody Negative Negative LAB CHEMISTRY METHOD 05/11/2024 12:54 PM EST [facility] Blood Venous blood specimen / Unknown Venipuncture / Unknown 05/11/2024 9:53 AM EST 05/11/2024 9:53 AM EST Ra Fan MD LAB BLOOD ORDERA BLES Final Result [facility] [address] [place] [address], [place] [phone] * Lipid panel with reflex to direct LDL (05/11/2024 9:53 AM EST) [facility] Cholesterol 160 0 - 200 mg/dL LAB CHEMISTRY METHOD 05/11/2024 12:57 PM EST [facility] Triglycerides 44 0 - 150 mg/dL LAB CHEMISTRY METHOD 05/11/2024 12:57 PM EST [facility] HDL 55 >=40 mg/dL LAB CHEMISTRY METHOD 05/11/2024 12:57 PM [facility] LDL Calculated 96 0 - 100 mg/dL LAB CHEMISTRY METHOD 05/11/2024 12:57 PM [facility] VLDL Cholesterol Jah 8.8 mg/dL LAB CHEMISTRY METHOD 05/11/2024 12:57 PM [facility] Non HDL Chol. (LDL+VLDL) 105 <145 mg/dL LAB CHEMISTRY METHOD 05/11/2024 12:57 PM [facility] Chol/HDL Ratio 2.9 0.0 - 4.4 LAB CHEMISTRY METHOD 05/11/2024 12:57 PM [facility] Blood Venous blood specimen / Unknown Venipuncture / Unknown 05/11/2024 9:53 AM EST 05/11/2024 9:53 AM EST Ra Fan MD LAB BLOOD ORDERA BLES Final Result [facility] [address] [place] [address], [place] [phone] * MG Mammo Digital Screening w Dionisio [...] is recommended in 1 year. Mammo Location: [facility], [address] [place] [address], [address], . -------- FINAL REPORT -------- Dictated By: Ric Herman Dictated Date: 04/13/2024 12:01 ET Assigned Physician: Ric Herman Reviewed and Electronically Signed By: Ric Herman Signed Date: 04/13/2024 12:07 ET Workstation ID: [id number] Transcribed By: Self Edit Transcribed Date: 04/13/2024 12:01 ET Narrative 04/13/2024 12:07 PM EST STUDY: Bilateral screening mammography with tomosynthesis and CAD TECHNIQUE: Bilateral full-field digital screening mammography is obtained and read in conjunction with computer-aided detection. Tomosynthesis as well as 2-D C view imaging [...] is recommended in 1 year. Mammo Location: [facility], [address] [place] [address], [phone], . -------- FINAL REPORT -------- Dictated By: Ric Herman Dictated Date: 04/13/2024 12:01 ET Assigned Physician: Ric Herman Reviewed and Electronically Signed By: Ric Herman Signed Date: 04/13/2024 12:07 ET Workstation ID: [id number] Transcribed By: Self Edit Transcribed Date: 04/13/2024 12:01 ET Ra Fan MD IMG BI PROCEDURE S Final Result from Last 3 Months or Most Recently Relevant to Health Maintenance Insurance [employer] Care Teams Bunch Maker Hand Relationship Specialty Start Date End Date Ra Fan MD [address] [facility] [place] [facility] - General Internal Medicine 10/14/21
[2024-11-16 13:50] LABS: MANUAL DIFF FLAG NO
[2024-11-16 13:56] LABS: Appearance Urine Clear; Glucose Urine UA Negative (Negative); PH 5.5 (5.0-9.0); Specific Gravity - Urine 1.020 (1.005-1.025)
[2024-11-16 14:03] LABS: Hematocrit 36.3 % (37.0-47.0); Hemoglobin 12.2 g/dl (12.0-16.0); Imm Gran Abs Auto 0.01 X10*3/uL (0.00-0.03); Imm Gran Pct Auto 0.2 % (0.0-0.4); Lymphocytes Absolute Auto 1.3 X10*3/uL (1.2-4.9); Mean Corpuscular HGB Conc 33.6 g/dl (31.0-35.0); Mean Corpuscular Hemoglobin 30.9 pg (27.0-33.0); Mean Corpuscular Volume 91.9 fL (80.0-98.0); NRBC Abs Auto 0.000 X10*3/uL (0.0-0.012); NRBC Pct Auto 0.0 /100WBC (0.0-0.2); Platelet Count 362 X10*3/uL (160-400); Red Blood Count 3.95 X10*6/uL (4.20-5.50); White Blood Count 5.4 X10*3/uL (4.8-10.8)
[2024-11-16 14:40] LABS: Alanine Aminotransferase 11 U/L (0-31); Albumin Level 4.3 g/dL (3.5-5.0); Alkaline Phosphatase 42 U/L (39-117); Anion Gap 10 (12-20); Aspartate Amino Transferase 25 U/L (5-31); Blood Urea Nitrogen 11 mg/dL (9-16); Calcium 9.1 mg/dL (8.4-10.2); Carbon Dioxide 24 mmol/L (22-29); Chloride 108 mmol/L (96-108); Estimated Glomerular Filt Rate > 60; Potassium 3.9 mmol/L (3.3-5.1); Sodium 138 mmol/L (135-145); Total Protein 6.9 g/dL (6.5-8.0)
[2024-11-16 14:53] LABS: Protein/Creatinine Ratio, Ur 0.06 (<0.2); Total Protein Urine Random 8 mg/dL (<12)
== END 2024-11-16 08:11 | disposition home or self-care (01) ==
LOC: HO.HKASLDS 08:10
PROVIDERS: Visit Provider Student in an Organized Health Care Education/Training Program
DX: M32.19 Other organ or system involvement in systemic lupus erythematosus (principal); M05.9 Rheumatoid arthritis with rheumatoid factor, unspecified; M32.9 Systemic lupus erythematosus, unspecified
CPT/HCPCS: 36415; 80053; 81001; 82570; 84156; 85025; 85652; 86140; 86160; 86225

== ENCOUNTER 2024-11-22 07:23 | Outpatient (AMB) | payer OTHER, SELFPAY ==
--- OUTSIDE RECORDS SUMMARY | 2024-11-22 07:26 | XMS_ITS | Clinical Summary ---
Author Organization [facility] Address [address] [place] [address] Phone Care Team Providers Care Data Reduction Technician Name Role Phone Ra Fan MD Primary [...] Diagnosed Date Lupus (systemic lupus erythe matosus) ([facility] V24, [facility] V28) 05/11/2024 Assessment & Plan (05/11/2024 9:38 AM EST): Continue hydroxychloroquine as prescribed by rheumatology Rheumatoid arthritis ([facility] V24, [facility] V28) 05/11/2024 Assessment & Plan (05/11/2024 9:38 AM EST): Having some pain/stiffness/swelling particularly in the right hand. She will follow-up with her resourcing consultant at [facility]. Iron deficiency anemia 07/24/2023 Overview (02/23/2024): with [...] 3yo and older 02/05/2023 Influenza, Unspecified 01/26/2023 [employer] SARS-CoV-2 COVID-19, mRNA, LNP-S, preservative free 11/17/2020,10/26/2020 [...] 12:00 PM EST Office Visit Adult Medicine [address] [phone] Ra Fan MD [address] [place] [phone] Health Maintenance Due Date Last Done Comments [...] reflex genotype (06/09/2024 9:09 AM EDT) Pathologist [facility] [place] HPV Negative Negative LAB MICROBIOLOGY METHOD 06/10/2024 2:36 PM EDT [facility] Brushing/Spatula Cervix uteri structure / Unknown 06/09/2024 9:09 AM EDT 06/10/2024 7:49 AM EDT Khloe Newman CNM LAB MOLECULAR DIAGNOSTICS ORD ERABLES Final Result Performing Organization Address City/[facility]/ZIP Co de Phone Number [facility] [address] [place] [address], [place] [phone] * Hepatitis C antibody (05/11/2024 9:53 AM EST) [facility] Hepatitis C Antibody Negative Negative LAB CHEMISTRY METHOD 05/11/2024 12:54 PM EST [facility] Blood Venous blood specimen / Unknown Venipuncture / Unknown 05/11/2024 9:53 AM EST 05/11/2024 9:53 AM EST Ra Fan MD LAB BLOOD ORDERA BLES Final Result [facility] [address] [place] [address], [place] [phone] * Lipid panel with reflex to direct LDL (05/11/2024 9:53 AM EST) [facility] Cholesterol 160 0 - 200 mg/dL LAB CHEMISTRY METHOD 05/11/2024 12:57 PM EST [facility] Triglycerides 44 0 - 150 mg/dL LAB CHEMISTRY METHOD 05/11/2024 12:57 PM EST [facility] HDL 55 >=40 mg/dL LAB CHEMISTRY METHOD 05/11/2024 12:57 PM [facility] LDL Calculated 96 0 - 100 mg/dL LAB CHEMISTRY METHOD 05/11/2024 12:57 PM [facility] VLDL Cholesterol Jah 8.8 mg/dL LAB CHEMISTRY METHOD 05/11/2024 12:57 PM [facility] Non HDL Chol. (LDL+VLDL) 105 <145 mg/dL LAB CHEMISTRY METHOD 05/11/2024 12:57 PM [facility] Chol/HDL Ratio 2.9 0.0 - 4.4 LAB CHEMISTRY METHOD 05/11/2024 12:57 PM [facility] Blood Venous blood specimen / Unknown Venipuncture / Unknown 05/11/2024 9:53 AM EST 05/11/2024 9:53 AM EST Ra Fan MD LAB BLOOD ORDERA BLES Final Result [facility] [address] [place] [address], [place] [phone] * MG Mammo Digital Screening w Dionisio [...] is recommended in 1 year. Mammo Location: [facility], [address] [place] [address], [phone], . -------- FINAL REPORT -------- Dictated By: Ric Herman Dictated Date: 04/13/2024 12:01 ET Assigned Physician: Ric Herman Reviewed and Electronically Signed By: Ric Herman Signed Date: 04/13/2024 12:07 ET Workstation ID: [id number] Transcribed By: Self Edit Transcribed Date: 04/13/2024 [...] is recommended in 1 year. Mammo Location: [facility], [address] [place] [address], [phone], . -------- FINAL REPORT -------- Dictated By: Ric Herman Dictated Date: 04/13/2024 12:01 ET Assigned Physician: Ric Herman Reviewed and Electronically Signed By: Ric Herman Signed Date: 04/13/2024 12:07 ET Workstation ID: [id number] Transcribed By: Self Edit Transcribed Date: 04/13/2024 12:01 ET Ra Fan MD IMG BI PROCEDURE S Final Result from Last 3 Months or Most Recently Relevant to Health Maintenance Insurance [employer] Care Teams Data Reduction Technician Relationship Specialty Start Date End Date Ra Fan MD [address] [facility] [place] [facility] - General Internal Medicine 10/14/21
[2024-11-22 07:33] VITALS: BP 92/62; PULSE 81; O2SAT 99; BMI 25.2
--- NOTE | 2024-11-22 07:33 | MHC.OFFVIS ---
Vital Signs 11/22/24 07:33 Height 5 ft 5 in Weight 151 lb 6 oz BMI 25.2 BP 92/62 Blood Pressure Location Lt brachial Position Sitting Pulse 81 Pulse Source Pulse Oximeter Pulse Oximetry (%) 99 Oxygen Delivery Method Room Air Intake Visit Reasons: Rhupus Intake Note: Patient presents for follow up on rhupus, pain in joints worse for the patient months, with numbness and tingling. Allergies latex Allergy (Mild, Verified 11/22/24 07:37) Rash HPI Comments Details: Patient is a 44 y.o. 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 medellin. - On Hydroxychloroquine - Complained of transient swelling and pain to her right 3rd MCP but this was transient - No changes to medications Today - Urgent visit - Swelling and pain to her right 3rd MCP became persistent for the past 1 month - No worsening stiffness - No other joint involved Rheumatologic History: SLE: onset 02/2023 (swollen hands on exam, +++SATINDER +DsDNA +++SSa low C3 & low C4) RF: onset 02/2023+++CCP -ve RF HCQ 11/2023 Initial history: This is a 43-year-old female who presents for evaluation of a positive SATINDER. For the last 6-7 months patient has been having pain in her hands, feet, swelling of her right 3rd MCP. Morning stiffness her hands and feet lasting hours. She has been taking ibuprofen 800 mg Twice daily for her joint pain with some improvement. She was prescribed a prednisone taper briefly dramatic relief but she did not feel well while taking it. She denies any other symptoms such as skin rashes, fevers, weight loss. Denies any blood or frothy urine. Denies any current oral ulcers. Denies any significant hair loss. Patient has melasma on her face since her . She has known iron-deficiency anemia that has been attributed to heavy menses and copper IUD. Not want a medicated IUD as she wanted to avoid hormones. She is unaware of any family history of an autoimmune rheumatic disease. Denies any history of DVT/PE. 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 Review of Systems Const Details: Review of Systems Constitutional: Denies fever, chills, weight loss ENT: Denies vision changes, eye pain or eye redness, dental caries, dry mouth GI: Denies nausea, vomiting, diarrhea, abdominal pain, change in BM Pulm: Denies SOB, VALERA, hemoptysis, wheezing Cards: Denies chest pain, palpitations Skin: Denies Raynaud's, rash, nail changes, photosensitivity, YOKER: Denies headaches, weakness, paresthesias, recurrent falls MSK: as per HPI All other systems reviewed and are unremarkable except noted above Physical Exam Exam Exam: Vital signs reviewed Physical Examination CONSTITUITIONAL Patient alert and cooperative. Well appearing and in no apparent painful distress MSK Hands Right Hand: Able to make a fist. Swelling noted over the 3rd MCP but no boggyness or TTP. No swelling or tenderness to palpation of the other MCPs, PIPs or DIPs. No deformities noted. Left Hand: Able to make a fist. No swelling or tenderness to palpation of the MCPs, PIPs or DIPs. No deformities noted. Wrists Right Wrist: Full ROM to flexion and extension. No swelling or TTP Left Wrist: Full ROM to flexion and extension. No swelling or TTP Elbows Right Elbow: Full ROM. No swelling or TTP. No TTP of the medial epicondyle. No TTP of the lateral epicondyle Left Elbow: Full ROM. No swelling or TTP. No TTP of the medial epicondyle. No TTP of the lateral epicondyle Shoulders Right shoulder: Full ROM. No swelling noted. No TTP of the AC joint. No TTP of the subacromial bursa. No TTP of the posterior shoulder Left shoulder: Full ROM. No swelling noted. No TTP of the AC joint. No TTP of the subacromial bursa. No TTP of the posterior shoulder Knees Right knee: Full ROM. No swelling noted. No TTP of the knee joint line. No TTP of pes anserine bursa Left knee: Full ROM. No swelling noted. No TTP of the knee joint line. No TTP of pes anserine bursa. Ankles Right ankle: Good ankle dorsiflexion and plantar flexion. No swelling. No TTP of the ankle joint Left ankle: Good ankle dorsiflexion and plantar flexion. No swelling. No TTP of the ankle joint Feet Right foot: Negative squeeze test Left foot: Negative squeeze test Tender points? No tenderness to palpation of the bilateral trapezius, supraspinatus, anterior costochondral junctions, bilateral suboccipital muscle insertions SKIN No rashes Vital Signs: Last Vital Signs Pulse 81 11/22/24 07:33 BP 92/62 11/22/24 07:33 Pulse Ox 99 11/22/24 07:33 Oxygen Delivery Method Room Air 11/22/24 07:33 BMI result Body Mass Index 25.2 Results Reviewed Results Reviewed: Laboratory Tests 08/02/24 11/16/24 13:22 08:18 WBC 5.4 RBC 3.95 L Hgb 12.2 Hct 36.3 L Plt Count 362 ESR 7 Sodium 138 Potassium 3.9 Chloride 108 Carbon Dioxide 24 BUN 11 Creatinine 0.66 AST 25 ALT 11 Alkaline Phosphatase 42 C-Reactive Protein < 0.10 0.13 Laboratory Tests 08/02/24 11/16/24 13:22 08:18 Double Strand DNA Ab 3 2 Complement C3 113 103 Complement C4 16 18 Laboratory Tests 11/16/24 08:18 Urine Color Yellow Urine Appearance Clear Urine Protein Negative Urine Blood Negative Protein/Creatinin Ratio 0.06 Assessment & Plan Assessment & Plan (1) SLE (systemic lupus erythematosus): Comment: onset 02/2023 (swollen hands on exam, +++SATINDER +DsDNA +++SSa low C3 & low C4) Code(s): M32.9 - Systemic lupus erythematosus, unspecified Category: Medical Qualifiers: Systemic lupus erythematosus type: other Systemic lupus erythematosus organ involvement: other Qualified Code(s): M32.19 - Other organ or system involvement in systemic lupus erythematosus Plan: #SLE Patient is a 44 y.o. female with RA/SLE overlap here today for an urgent visit. Currently has synovial hypertrophy without TTP of the right 3rd MCP that does intermittently hurt. No evidence of active synovitis at this time Given the persistent pain will check XR hands and then Hand US (if XRs normal) to evaluate for active synovitis Plan - Hydroxychloroquine 400mg x 5 days a week and 200mg x 2 days a week - XR Bilat Hands - RTC for regular visit - Labs before visit: CBC, CMP, ESR, CRP, C3, C4, dsDNA, UA, UPC (2) Seropositive rheumatoid arthritis: Comment: onset 02/2023+++CCP -ve RF HCQ 11/2023 PDN tapered off 02/2024 Code(s): M05.9 - Rheumatoid arthritis with rheumatoid factor, unspecified Category: Medical Plan: As above (3) Long-term use of hydroxychloroquine: Code(s): Z79.899 - Other terminal operations supervisor (current) drug therapy Category: Medical Plan: #Long-term Use of Hydroxychloroquine Discussed with patient the risks and benefits of hydroxychloroquine in managing the rheumatic condition Benefits include: - Reduced pain, reduce mortality, maintenance of remission and reduction of flares Risks include: - GI upset, skin hyperpigmentation, retinal toxicity (especially after more than 5 years of use), myopathy Advised yearly ophthalmology visits Plan I spent 30 minutes reviewing the record and labs, taking a history, examining the patient, discussing the treatment plan, ordering diagnostic work up and documenting in the medical record Orders: Orders XR Hand Bilat min 3v Today M05.9 - Rheumatoid arthritis with rheumatoid factor, unspecified Complete Blood Count Auto Diff 4 Months M3. - Systemic lupus erythematosus, unspecified C Reactive Protein 4 Months M3. - Systemic lupus erythematosus, unspecified Complement C4 4 Months M32. - Systemic lupus erythematosus, unspecified UA ClnCatch+Micro w/rflx Cult 4 Months M32.9 - Systemic lupus erythematosus, unspecified Protein Creatinine Ratio, Ur 4 Months M32.9 - Systemic lupus erythematosus, unspecified Comprehensive Met. Panel 4 Months M32. - Systemic lupus erythematosus, unspecified Erythrocyte Sedimentation Rate 4 Months M32.9 - Systemic lupus erythematosus, unspecified Complement C3 4 Months M32.9 - Systemic lupus erythematosus, unspecified Anti DNA DS Antibody 4 Months M32.9 - Systemic lupus erythematosus, unspecified Coding Level of Care Code Est Pt Level 4 (23124) Complex EM visit Add On G2211 Diagnoses Other systemic lupus erythematosus with other organ involvement M32.19 Systemic lupus erythematosus type: other Systemic lupus erythematosus organ involvement: other Seropositive rheumatoid arthritis M05.9 Long-term use of hydroxychloroquine Z79.899
== END 2024-11-22 07:54 | disposition home or self-care (01) ==
LOC: HO.RHES 07:23
PROVIDERS: PCP Internal Medicine; Visit Provider Student in an Organized Health Care Education/Training Program
DX: M32.19 Other organ or system involvement in systemic lupus erythematosus (principal); M05.9 Rheumatoid arthritis with rheumatoid factor, unspecified; Z79.899 Other long term (current) drug therapy
CPT/HCPCS: 99214; G2211

== ENCOUNTER 2024-11-22 07:23 | Outpatient (REF) | payer OTHER, SELFPAY ==
--- NOTE | ~2024-11-22 | XR_ITS ---
CLINICAL HISTORY: M05.9 - Rheumatoid arthritis with rheumatoid factor, unspecified Radiographs of the right hand, 3 views Comparison: None available Findings: No fracture or dislocation. The joint spaces are preserved without osteophytosis. Question small erosion of the base of the 2nd proximal phalanx seen on the PA view measuring 2 mm. No soft tissue swelling. Impression: Question small erosion of the base of the 2nd proximal phalanx. Radiographs of the left hand, 3 views Comparison: None available Findings: No fracture or dislocation. The joint spaces are preserved without osteophytosis. No erosions or demineralization. No soft tissue swelling. Impression: No acute findings or arthritic change. This document has been electronically signed by: Shameka Cruz MD on 11/23/2024 14:13:54
== END 2024-11-22 07:24 | disposition home or self-care (01) ==
LOC: HO.XRAY 07:23
PROVIDERS: PCP Internal Medicine; Visit Provider Student in an Organized Health Care Education/Training Program
DX: M32.19 Other organ or system involvement in systemic lupus erythematosus (principal); Z79.899 Other long term (current) drug therapy
CPT/HCPCS: 73130

== ENCOUNTER → 2024-11-22 08:23 | Outpatient (BNV) | payer OTHER, SELFPAY | PROVIDERS: PCP Internal Medicine; Visit Provider Radiology Diagnostic Radiology | DX: M06.041 Rheumatoid arthritis without rheumatoid factor, right hand (principal); M06.042 Rheumatoid arthritis without rheumatoid factor, left hand | CPT/HCPCS: 73130 ==

== ENCOUNTER → 2024-12-24 10:07 | Outpatient (BNV) | payer OTHER, SELFPAY | PROVIDERS: PCP Internal Medicine; Visit Provider Radiology Diagnostic Radiology | DX: M05.9 Rheumatoid arthritis with rheumatoid factor, unspecified (principal); M25.442 Effusion, left hand; M85.841 Other specified disorders of bone density and structure, right hand | CPT/HCPCS: 73218 ==

== ENCOUNTER 2024-12-24 10:11 | Outpatient (REF) | payer OTHER, SELFPAY ==
--- NOTE | ~2024-12-24 | MR_ITS ---
CLINICAL HISTORY: M05.9 - Rheumatoid arthritis with rheumatoid factor, unspecified --- Additional Notes or Special Instructions: Questionable erosions on Hand XR MR [of the right hand Comparison: CR - XR HAND BILAT MIN 3V - 11/22/24 08:35 EDT Findings: No fractures or dislocations. No significant arthritic change. No erosions. The 3rd metacarpophalangeal joint demonstrates a large joint effusion. Distal 3rd metacarpal radial aspect subperiosteal bone marrow edema, 0.5 x 0.3 cm, coronal image number 9 of 15 series 10. IMPRESSION: 1. Large joint effusion in the 3rd metacarpophalangeal joint; associated with early rheumatoid arthritis. 2. Subperiosteal bone marrow edema in the distal 3rd metacarpal radial aspect, measuring 0.5 x 0.3 cm; developing subchondral cyst. This document has been electronically signed by: Sterling Quintana MD on 12/27/2024 20:00:30
--- OUTSIDE RECORDS SUMMARY | 2024-12-24 10:15 | XMS_ITS | Clinical Summary ---
Author Organization [facility] Address [address] [place] [address] Phone Care Team Providers Care Flatbed Owner Operator Name Role Phone Ra Fan MD Primary [...] Diagnosed Date Lupus (systemic lupus erythe matosus) ([facility] V24, [facility] V28) 05/11/2024 Assessment & Plan (05/11/2024 9:38 AM EST): Continue hydroxychloroquine as prescribed by rheumatology Rheumatoid arthritis ([facility] V24, [facility] V28) 05/11/2024 Assessment & Plan (05/11/2024 9:38 AM EST): Having some pain/stiffness/swelling particularly in the right hand. She will follow-up with her pharmacognosy teacher at [facility]. Iron deficiency anemia 07/24/2023 Overview (02/23/2024): with menorrhagia d/t Paraguard IUD Assessment & Plan (05/11/2024 9:38 AM EST): Continue ferrous sulfate and daily Vitamin C Orders: Ferritin; Future Iron and TIBC; Future CBC and differential; Future Vitamin D deficiency 03/21/2020 Assessment & Plan (05/11/2024 9:38 AM EST): Continue vitamin D 4000U daily Orders: Vitamin D 25 hydroxy; Future Immunizations Immunization Administration Dates Next Due Influenza Quadravalent, MDCK , 0.5ml, preservative free (Flucelvax) 6mo and older 03/10/2024 Influenza Quadrivalent, 0.5m l, preservative free (Fluarix; FluLaval; Fluzone) ages 6mo and older (Afluria) 3yo and older 02/05/2023 Influenza, Unspecified 01/26/2023 Reveal Data SARS-CoV-2 COVID-19, mRNA, LNP-S, preservative free 11/17/2020,10/26/2020 [...] care for your loved ones. For example, children's nursery assistant or elderly care for an older adult? [...] Date Recorded What is your living situation? Unrecognized valu e 06/02/2024 Comments No Sex and Gender Information [...] 12:00 PM EST Office Visit Adult Medicine [address] [phone] Ra Fan MD [address] [place] [address] Health Maintenance Due Date Last Done Comments DTaP,Tdap,and Td Vaccines (1 - Tdap) 2000 HIV Screening 04/22/2019 Influenza Vaccine (#1) 2024 , 02/05/2023, 01/26/2023 Social Influencers of Health Screening 06/02/2025 06/02/2024 Breast Cancer Screening 04/13/2026 04/13/19 25, 04/01/2023, 03/26/2022 Cholesterol Screening (Lipid Panel) 05/11/2029 05/11/2024, 04/28/2023 Cervical Cancer Screening: HPV 06/09/2029 06/09/2024, 12/11/2021 RSV Immunization Adult Patients (1 - 1-dose 75+ series) 2056 COVID-19 Vaccine Discontinued 11/17/2020, 10/26/2020 Hepatitis C [...] with reflex genotype (06/09/2024 9:09 AM EDT) [facility] HPV Negative Negative LAB MICROBIOLOGY METHOD 06/10/2024 2:36 PM EDT [facility] Brushing/Spatula Cervix uteri structure / Unknown 06/09/2024 9:09 AM EDT 06/10/2024 7:49 AM EDT Khloe Newman CNM LAB MOLECULAR DIAGNOSTICS ORD ERABLES Final Result [facility] [address] [place] [address], [place] [phone] * Hepatitis C antibody (05/11/2024 9:53 AM EST) [facility] Hepatitis C Antibody Negative Negative LAB CHEMISTRY METHOD 05/11/2024 12:54 PM EST [facility] Blood Venous blood specimen / Unknown Venipuncture / Unknown 05/11/2024 9:53 AM EST 05/11/2024 9:53 AM EST Ra Fan MD LAB BLOOD ORDERA BLES Final Result [facility] [address] [place] [address], [place] [phone] * Lipid panel with reflex to direct LDL (05/11/2024 9:53 AM EST) Cholesterol 160 0 - 200 mg/dL LAB CHEMISTRY METHOD 05/11/2024 12:57 PM [facility] Triglycerides 44 0 - 150 mg/dL LAB CHEMISTRY METHOD 05/11/2024 12:57 PM [facility] HDL 55 >=40 mg/dL LAB CHEMISTRY METHOD 05/11/2024 12:57 PM [facility] LDL Calculated 96 0 - 100 mg/dL LAB CHEMISTRY METHOD 05/11/2024 12:57 PM EST [facility] VLDL Cholesterol Jah 8.8 mg/dL LAB CHEMISTRY METHOD 05/11/2024 12:57 PM [facility] Non HDL Chol. (LDL+VLDL) 105 <145 mg/dL LAB CHEMISTRY METHOD 05/11/2024 12:57 PM [facility] Chol/HDL Ratio 2.9 0.0 - 4.4 LAB CHEMISTRY METHOD 05/11/2024 12:57 PM EST [facility] Blood Venous blood specimen / Unknown Venipuncture / Unknown 05/11/2024 9:53 AM EST 05/11/2024 9:53 AM EST Ra Fan MD LAB BLOOD ORDERA BLES Final Result [facility] [address] [place] [address], [place] [phone] * MG Mammo Digital Screening w Dionisio [...] is recommended in 1 year. Mammo Location: [facility], [address] [place] [address], [address], . -------- FINAL REPORT -------- Dictated By: Ric Herman Dictated Date: 04/13/2024 12:01 ET Assigned Physician: Ric Herman Reviewed and Electronically Signed By: Ric Herman Signed Date: 04/13/2024 12:07 ET Workstation ID: [id number] Transcribed By: Self Edit Transcribed Date: 04/13/2024 [...] is recommended in 1 year. Mammo Location: [facility], [address] [place] [address], [address], . -------- FINAL REPORT -------- Dictated By: Ric Herman Dictated Date: 04/13/2024 12:01 ET Assigned Physician: Ric Herman Reviewed and Electronically Signed By: Ric Herman Signed Date: 04/13/2024 12:07 ET Workstation ID: [id number] Transcribed By: Self Edit Transcribed Date: 04/13/2024 12:01 ET Ra Fan MD IMG BI PROCEDURE S Final Result from Last 3 Months or Most Recently Relevant to Health Maintenance Insurance [employer] Care Teams Flatbed Owner Operator Relationship Specialty Start Date End Date Ra Fan MD [address], [place] PCP - General Internal Medicine 10/14/21
== END 2024-12-24 10:12 | disposition home or self-care (01) ==
LOC: HO.MRI 10:11
PROVIDERS: PCP Internal Medicine; Visit Provider Student in an Organized Health Care Education/Training Program
DX: M05.9 Rheumatoid arthritis with rheumatoid factor, unspecified (principal)
CPT/HCPCS: 73218

== ENCOUNTER 2025-01-03 07:43 | Outpatient (AMB) | payer OTHER, SELFPAY ==
--- OUTSIDE RECORDS SUMMARY | 2025-01-03 07:45 | XMS_ITS | Clinical Summary ---
Author Organization [facility] Address [address] [place] [address] Phone Care Team Providers Care Medical Records Manager Name Role Phone Ra Fan MD Primary [...] Diagnosed Date Lupus (systemic lupus erythe matosus) ([facility] V24, [facility] V28) 05/11/2024 Assessment & Plan (05/11/2024 9:38 AM EST): Continue hydroxychloroquine as prescribed by rheumatology Rheumatoid arthritis ([facility] V24, [facility] V28) 05/11/2024 Assessment & Plan (05/11/2024 9:38 AM EST): Having some pain/stiffness/swelling particularly in the right hand. She will follow-up with her sammying machine operator at [facility]. Iron deficiency anemia 07/24/2023 Overview (02/23/2024): [...] 3yo and older 02/05/2023 Influenza, Unspecified 01/26/2023 Data [employer] SARS-CoV-2 COVID-19, mRNA, LNP-S, preservative free 11/17/2020,10/26/2020 [...] care for your loved ones. For example, attendant children's institution or elderly care for an older adult? [...] 12:00 PM EST Office Visit Adult Medicine [address] [phone] Ra Fan MD [address] [place] [address] 06/12/2025 9:00 AM EDT Office Visit Obstetrics & Gynecology - [address] [phone] Haley Lopez, ALE [address] [place] [address] Health Maintenance Due Date Last Done Comments DTaP,Tdap,and Td Vaccines (1 - Tdap) 2000 HPV Vaccines (1 - 3-dose SCD M series) 2008 HIV Screening 04/22/2019 Influenza Vaccine (#1) 2024 , 02/05/2023, 01/26/2023 Social Influencers of Health Screening 06/02/2025 06/02/2024 Breast Cancer Screening 04/13/2026 04/13/19, 04/01/2023, 03/26/2022 [...] LAB MICROBIOLOGY METHOD 06/10/2024 2:36 PM EDT [facility] Brushing/Spatula Cervix uteri structure / Unknown 06/09/2024 9:09 AM EDT 06/10/2024 7:49 AM EDT us Khloe Newman CNM LAB MOLECULAR DIAGNOSTICS ORD ERABLES Final Result Performing Organization Address [facility]/State/ZIP Co de Phone Number [facility] [address] [place] [address], * Hepatitis C antibody (05/11/2024 9:53 AM EST) Hepatitis C Antibody Negative Negative LAB CHEMISTRY METHOD 05/11/2024 12:54 PM EST [facility] Blood Venous blood specimen / Unknown Venipuncture / Unknown 05/11/2024 9:53 AM EST 05/11/2024 9:53 AM EST Ra Fan MD LAB BLOOD ORDERA BLES Final Result [facility] [address] [place] [address], [place] [phone] * Lipid panel with reflex to direct LDL (05/11/2024 9:53 AM EST) Cholesterol 160 0 - 200 mg/dL LAB CHEMISTRY METHOD 05/11/2024 12:57 PM EST [facility] Triglycerides 44 0 - 150 mg/dL LAB CHEMISTRY METHOD 05/11/2024 12:57 PM EST [facility] HDL 55 >=40 mg/dL LAB CHEMISTRY METHOD 05/11/2024 12:57 PM EST [facility] LDL Calculated 96 0 - 100 mg/dL LAB CHEMISTRY METHOD 05/11/2024 12:57 PM [facility] VLDL Cholesterol Jah 8.8 mg/dL LAB CHEMISTRY METHOD 05/11/2024 12:57 PM EST [facility] Non HDL Chol. (LDL+VLDL) 105 <145 mg/dL LAB CHEMISTRY METHOD 05/11/2024 12:57 PM EST [facility] Chol/HDL Ratio 2.9 0.0 - 4.4 LAB CHEMISTRY METHOD 05/11/2024 12:57 PM EST [facility] Blood Venous blood specimen / Unknown Venipuncture / Unknown 05/11/2024 9:53 AM EST 05/11/2024 9:53 AM EST us Ra Fan MD LAB BLOOD ORDERA BLES Final Result [facility] [address] [place] [address], [place] [phone] * MG Mammo Digital Screening w Dionisio [...] is recommended in 1 year. Mammo Location: [facility], [address] [place] [address], [address], . -------- FINAL REPORT -------- Dictated By: Ric Herman Dictated Date: 04/13/2024 12:01 ET Assigned Physician: Ric Herman Reviewed and Electronically Signed By: Ric Herman Signed Date: 04/13/2024 12:07 ET Workstation ID: [id number] Transcribed By: Self Edit Transcribed Date: 04/13/2024 [...] is recommended in 1 year. Mammo Location: [facility], [address] [place] [address], [address], . -------- FINAL REPORT -------- Dictated By: Ric Herman Dictated Date: 04/13/2024 12:01 ET Assigned Physician: Ric Herman Reviewed and Electronically Signed By: Ric Herman Signed Date: 04/13/2024 12:07 ET Workstation ID: [id number] Transcribed By: Self Edit Transcribed Date: 04/13/2024 12:01 ET Ra Fan MD IMG BI PROCEDURE S Final Result from Last 3 Months or Most Recently Relevant to Health Maintenance Insurance [employer] Care Teams Medical Records Manager Relationship Specialty Start Date End Date Ra Fan MD [address] [facility], [place] PCP - General Internal Medicine 10/14/21
--- NOTE | 2025-01-03 07:47 | A.OFFVIS_ITS ---
Vital Signs 01/03/25 08:01 Height 5 ft 5 in Weight 156 lb 1.396 oz BMI 26.0 BP 100/70 Blood Pressure Location Lt brachial Position Sitting Pulse 78 Pulse Source Pulse Oximeter Pulse Oximetry (%) 98 Oxygen Delivery Method Simple Mask Intake Visit Reasons: review MRI results Intake Note: Patient presents for MRI results review follow up. Allergies latex Allergy (Mild, Verified 01/03/25 07:58) Rash Medication List - Last Reconciled 01/03/25 by Rosie Grant MD ascorbic acid (vitamin C) 1 g PO DAILY ascorbic acid-collagen 30-833.3 mg (Collagen Skin Renewal) tabs PO biotin mcg PO cholecalciferol (vitamin D3) 25 mcg PO BID ferrous sulfate 325 mg PO BID hydroxychloroquine Take 2 tabs daily x5 days a week and 1 tab daily x2 days a week ibuprofen 600 mg PO TID HPI Comments Details: Patient is a 44 y.o. female with SLE/RA overlap and polyarticular OA (hands) here today for follow up Interval History: Patient last seen 11/22/24 with me. - On Hydroxychloroquine - Urgent visit - Swelling and pain to her right 3rd MCP became persistent for the past 1 month - No worsening stiffness - No other joint involved - XRs and MRI ordered Today - On hydroxychloroquine - MRI showed effusion over associated with the 3rd MCP - Neck pain, radiating down to hand with numbness Rheumatologic History: SLE: onset 02/2023 (swollen hands on exam, +++SATINDER +DsDNA +++SSa low C3 & low C4) RF: onset 02/2023+++CCP -ve RF HCQ 11/2023 Methotrexate - did not tolerate, tired Initial history: This is a 43-year-old female who presents for evaluation of a positive SATINDER. For the last 6-7 months patient has been having pain in her hands, feet, swelling of her right 3rd MCP. Morning stiffness her hands and feet lasting hours. She has been taking ibuprofen 800 mg Twice daily for her joint pain with some improvement. She was prescribed a prednisone taper briefly dramatic relief but she did not feel well while taking it. She denies any other symptoms such as skin rashes, fevers, weight loss. Denies any blood or frothy urine. Denies any current oral ulcers. Denies any significant hair loss. Patient has melasma on her face since her . She has known iron- deficiency anemia that has been attributed to heavy menses and copper IUD. Not want a medicated IUD as she wanted to avoid hormones. She is unaware of any family history of an autoimmune rheumatic disease. Denies any history of DVT/PE. 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 Review of Systems Const Details: Review of Systems Constitutional: Denies fever, chills, weight loss ENT: Denies vision changes, eye pain or eye redness, dental caries, dry mouth GI: Denies nausea, vomiting, diarrhea, abdominal pain, change in BM Pulm: Denies SOB, VALERA, hemoptysis, wheezing Cards: Denies chest pain, palpitations Skin: Denies Raynaud's, rash, nail changes, photosensitivity, GLAZE MIXER: Denies headaches, weakness, paresthesias, recurrent falls MSK: as per HPI All other systems reviewed and are unremarkable except noted above Physical Exam Exam Exam: Vital signs reviewed Physical Examination CONSTITUITIONAL Patient alert and cooperative. Well appearing and in no apparent painful distress MSK Hands * Right Hand: Able to make a fist. Swelling noted over the 3rd MCP but no boggyness or TTP. No swelling or tenderness to palpation of the other MCPs, PIPs or DIPs. * Left Hand: Able to make a fist. No swelling or tenderness to palpation of the MCPs, PIPs or DIPs. * Herbedens nodes noted bilaterally Wrists * Right Wrist: Full ROM to flexion and extension. No swelling or TTP * Left Wrist: Full ROM to flexion and extension. No swelling or TTP Elbows * Right Elbow: Full ROM. No swelling or TTP. No TTP of the medial epicondyle. No TTP of the lateral epicondyle * Left Elbow: Full ROM. No swelling or TTP. No TTP of the medial epicondyle. No TTP of the lateral epicondyle Shoulders * Right shoulder: Full ROM. No swelling noted. No TTP of the AC joint. No TTP of the subacromial bursa. No TTP of the posterior shoulder * Left shoulder: Full ROM. No swelling noted. No TTP of the AC joint. No TTP of the subacromial bursa. No TTP of the posterior shoulder Knees * Right knee: Full ROM. No swelling noted. No TTP of the knee joint line. No TTP of pes anserine bursa * Left knee: Full ROM. No swelling noted. No TTP of the knee joint line. No TTP of pes anserine bursa. * Crepitations felt bilaterally Ankles * Right ankle: Good ankle dorsiflexion and plantar flexion. No swelling. No TTP of the ankle joint * Left ankle: Good ankle dorsiflexion and plantar flexion. No swelling. No TTP of the ankle joint Feet * Right foot: Negative squeeze test * Left foot: Negative squeeze test Tender points? * No tenderness to palpation of the bilateral trapezius, supraspinatus, anterior costochondral junctions, bilateral suboccipital muscle insertions SKIN No rashes Results Reviewed Results Reviewed: Laboratory Tests 08/02/24 11/16/24 13:22 08:18 WBC 5.4 RBC 3.95 L Hgb 12.2 Hct 36.3 L Plt Count 362 ESR 7 Sodium 138 Potassium 3.9 Chloride 108 Carbon Dioxide 24 BUN 11 Creatinine 0.66 AST 25 ALT 11 Alkaline Phosphatase 42 C-Reactive Protein < 0.10 0.13 Laboratory Tests 08/02/24 11/16/24 13:22 08:18 Double Strand DNA Ab 3 2 Complement C3 113 103 Complement C4 16 18 Laboratory Tests 11/16/24 08:18 Urine Color Yellow Urine Appearance Clear Urine Protein Negative Urine Blood Negative Protein/Creatinin Ratio 0.06 XR Right Hand 11/2024 Findings: No fracture or dislocation. The joint spaces are preserved without osteophytosis. Question small erosion of the base of the 2nd proximal phalanx seen on the PA view measuring 2 mm. No soft tissue swelling. Impression: Question small erosion of the base of the 2nd proximal phalanx.. MR Right Hand 12/2024 Findings: No fractures or dislocations. No significant arthritic change. No erosions. The 3rd metacarpophalangeal joint demonstrates a large joint effusion. Distal 3rd metacarpal radial aspect subperiosteal bone marrow edema, 0.5 x 0.3 cm, coronal image number 9 of 15 series 10. IMPRESSION: 1. Large joint effusion in the 3rd metacarpophalangeal joint; associated with early rheumatoid arthritis. 2. Subperiosteal bone marrow edema in the distal 3rd metacarpal radial aspect, measuring 0.5 x 0.3 cm; developing subchondral cyst. Assessment & Plan Assessment & Plan (1) SLE (systemic lupus erythematosus): Comment: onset 02/2023 (swollen hands on exam, +++SATINDER +DsDNA +++SSa low C3 & low C4) HCQ MTx - not tolerated Code(s): M32.9 - Systemic lupus erythematosus, unspecified Category: Medical Qualifiers: Systemic lupus erythematosus type: other Systemic lupus erythematosus organ involvement: other Qualified Code(s): M32.19 - Other organ or system involvement in systemic lupus erythematosus Plan: #SLE Patient is a 44 y.o. female with RA/SLE overlap here today for follow up of MRI results MRI showing synovitis of the 3rd MCP despite HCQ Not tolerating methotrexate Discussed with patient about next steps including starting TNF inhibitors which could potentially worsen her underlying lupus but given that her current activity is mainly rheumatoid arthritis I think it is worth trying. All questions answered Plan - Hydroxychloroquine 400mg x 5 days a week and 200mg x 2 days a week - Start Enbrel 50mg SC every week - RTC 3 months - Labs before visit: CBC, CMP, ESR, CRP, C3, C4, dsDNA, UA, UPC, hepatitis B/C, T spot (2) Seropositive rheumatoid arthritis: Comment: onset 02/2023+++CCP -ve RF HCQ 11/2023 PDN tapered off 02/2024 Code(s): M05.9 - Rheumatoid arthritis with rheumatoid factor, unspecified Category: Medical Plan: As above (3) Long-term use of hydroxychloroquine: Code(s): Z79.899 - Other intermediate designer (current) drug therapy Category: Medical Plan: #Long-term Use of Hydroxychloroquine Discussed with patient the risks and benefits of hydroxychloroquine in managing the rheumatic condition Benefits include: - Reduced pain, reduce mortality, maintenance of remission and reduction of flares Risks include: - GI upset, skin hyperpigmentation, retinal toxicity (especially after more than 5 years of use), myopathy Advised yearly ophthalmology visits (4) Encounter for monitoring of etanercept therapy: Code(s): Z51.81 - Encounter for therapeutic drug level monitoring; Z79.620 - intermediate designer (current) use of immunosuppressive biologic Plan: #Long-term Use of TNF Inhibitors: Enbrel Discussed with the patient the benefits and risks of TNF inhibitors for the management of the rheumatic condition Benefits include reduce pain, maintenance of remission and reduction of flares as well as progression of the disease Risks include injection sites/infusion reactions, serious infections (such as bacterial infections, opportunistic infections), malignancy, delaminating syndromes, autoimmune phenomena, CHF exacerbations, palmar plantar psoriasis and cytopenias Recommended rotating injection sites, and holding medication during and for up to 1 week after resolution of a febrile illness or open skin wound Plan I spent 30 minutes reviewing the record and labs, taking a history, examining the patient, discussing the treatment plan, ordering diagnostic work up and documenting in the medical record Orders: Orders Hepatitis B,C Profile 3 Months Z79.89 - Other intermediate designer (current) drug therapy T Spot TB 3 Months Z79. - Other intermediate designer (current) drug therapy Medications: New etanercept (Enbrel SureClick) 50 mg subcut QWEEK 4 mL 5RF M05.9 - Rheumatoid arthritis with rheumatoid factor, unspecified Discontinued folic acid Discontinued Reason: Doctor's Order 1 mg PO DAILY 90 tabs 1RF M05.9 - Rheumatoid arthritis with rheumatoid factor, unspecified methotrexate sodium Discontinued Reason: Doctor's Order 15 mg (6 x 2.5 mg) PO QWEEK 90 days 78 tabs 1RF M05.9 - Rheumatoid arthritis with rheumatoid factor, unspecified Coding Level of Care Code Est Pt Level 4 (80909) Complex EM visit Add On G2211 Diagnoses Other systemic lupus erythematosus with other organ involvement M32.19 Systemic lupus erythematosus type: other Systemic lupus erythematosus organ involvement: other Seropositive rheumatoid arthritis M05.9 Long-term use of hydroxychloroquine Z79.899 Encounter for monitoring of etanercept therapy Z51.81; Z79.620
[2025-01-03 08:01] VITALS: BP 100/70; PULSE 78; O2SAT 98; BMI 26.0
== END 2025-01-03 08:39 | disposition home or self-care (01) ==
LOC: HO.RHES 07:44
PROVIDERS: PCP Internal Medicine; Visit Provider Student in an Organized Health Care Education/Training Program
DX: M32.19 Other organ or system involvement in systemic lupus erythematosus (principal); M05.9 Rheumatoid arthritis with rheumatoid factor, unspecified; Z79.899 Other long term (current) drug therapy; Z51.81 Encounter for therapeutic drug level monitoring; Z79.620 Long term (current) use of immunosuppressive biologic
CPT/HCPCS: 99214; G2211

== ENCOUNTER 2025-01-12 15:32 | Outpatient (REF) | payer OTHER, SELFPAY ==
[2025-01-12 18:13] LABS: Alanine Aminotransferase 15 U/L (0-31); Albumin Level 4.5 g/dL (3.5-5.0); Alkaline Phosphatase 46 U/L (39-117); Anion Gap 11 (12-20); Aspartate Amino Transferase 25 U/L (5-31); Blood Urea Nitrogen 9 mg/dL (9-16); Calcium 9.2 mg/dL (8.4-10.2); Carbon Dioxide 22 mmol/L (22-29); Chloride 111 mmol/L (96-108); Estimated Glomerular Filt Rate > 60; Potassium 4.1 mmol/L (3.3-5.1); Sodium 140 mmol/L (135-145); Total Protein 7.4 g/dL (6.5-8.0)
--- OUTSIDE RECORDS SUMMARY | 2025-01-12 19:12 | XMS_ITS | Clinical Summary ---
Author Organization [facility] Address [address] [place] [address] Phone Care Team Providers Care Director Of Student Financial Aid Name Role Phone Ra Fan MD Primary [...] Diagnosed Date Lupus (systemic lupus erythe matosus) ([facility] V24, [facility] V28) 05/11/2024 Assessment & Plan (05/11/2024 9:38 AM EST): Continue hydroxychloroquine as prescribed by rheumatology Rheumatoid arthritis ([facility] V24, [facility] V28) 05/11/2024 Assessment & Plan (05/11/2024 9:38 AM EST): Having some pain/stiffness/swelling particularly in the right hand. She will follow-up with her creative assistant at [facility]. Iron deficiency anemia 07/24/2023 Overview (02/23/2024): [...] 3yo and older 02/05/2023 Influenza, Unspecified 01/26/2023 [place] SARS-CoV-2 COVID-19, mRNA, LNP-S, preservative free 11/17/2020,10/26/2020 [...] care for your loved ones. For example, child care center assistant director or elderly care for an older adult? [...] 12:00 PM EST Office Visit Adult Medicine [address] [phone] Ra Fan MD [address] [place] [address] 06/12/2025 9:00 AM EDT Office Visit Obstetrics & Gynecology - [address] [phone] Haley Lopez, ALE [address] [place] [address] Health Maintenance Due Date Last Done Comments [...] ORD ERABLES Final Result Performing Organization Address [facility]/State/ZIP Co de Phone Number [facility] [address] [place] [address], * Hepatitis C antibody (05/11/2024 9:53 AM EST) Hepatitis C Antibody Negative Negative LAB CHEMISTRY METHOD 05/11/2024 12:54 PM EST [facility] Blood Venous blood specimen / Unknown Venipuncture / Unknown 05/11/2024 9:53 AM EST 05/11/2024 9:53 AM EST Ra Fan MD LAB BLOOD ORDERA BLES Final Result [facility] [address] [place] [address], [place] [phone] * Lipid panel with reflex to direct LDL (05/11/2024 9:53 AM EST) Cholesterol 160 0 - 200 mg/dL LAB CHEMISTRY METHOD 05/11/2024 12:57 PM EST [facility] Triglycerides 44 0 - 150 mg/dL LAB CHEMISTRY METHOD 05/11/2024 12:57 PM EST [facility] HDL 55 >=40 mg/dL LAB CHEMISTRY METHOD 05/11/2024 12:57 PM EST [facility] LDL Calculated 96 0 - 100 mg/dL LAB CHEMISTRY METHOD 05/11/2024 12:[address] [facility] VLDL Cholesterol Jah 8.8 mg/dL LAB CHEMISTRY METHOD 05/11/2024 12:57 PM EST [facility] Non HDL Chol. (LDL+VLDL) 105 <145 mg/dL LAB CHEMISTRY METHOD 05/11/2024 12:57 PM EST [facility] Chol/HDL Ratio 2.9 0.0 - 4.4 LAB CHEMISTRY METHOD 05/11/2024 12:57 PM EST [facility] Blood Venous blood specimen / Unknown Venipuncture / Unknown 05/11/2024 9:53 AM EST 05/11/2024 9:53 AM EST us Ra Fan MD LAB BLOOD ORDERA BLES Final Result [facility] [address] [place] [address], [place] [phone] * MG Mammo Digital Screening w Dionisio [...] is recommended in 1 year. Mammo Location: [facility], [address] [place] [address], [id number], . -------- FINAL REPORT -------- Dictated By: Ric Herman Dictated Date: 04/13/2024 12:01 ET Assigned Physician: Ric Herman Reviewed and Electronically Signed By: Ric Herman Signed Date: 04/13/2024 12:07 ET Workstation ID: [id number] Transcribed By: Self Edit Transcribed Date: 04/13/2024 [...] is recommended in 1 year. Mammo Location: [facility], [address] [place] [address], [id number], . -------- FINAL REPORT -------- Dictated By: Ric Herman Dictated Date: 04/13/2024 12:01 ET Assigned Physician: Ric Herman Reviewed and Electronically Signed By: Ric Herman Signed Date: 04/13/2024 12:07 ET Workstation ID: [id number] Transcribed By: Self Edit Transcribed Date: 04/13/2024 12:01 ET Ra Fan MD IMG BI PROCEDURE S Final Result from Last 3 Months or Most Recently Relevant to Health Maintenance Insurance [employer] Care Teams Director Of Student Financial Aid Relationship Specialty Start Date End Date Ra Fan MD [address] [facility], [place] PCP - General Internal Medicine 10/14/21
[2025-01-15 04:19] LABS: TS Negative Control Passed; TS Panel A 0; TS Panel B 0; TS Positive Control Passed; TSpotTB Negative (Negative)
== END 2025-01-12 15:33 | disposition home or self-care (01) ==
LOC: HO.HKASLDS 15:32
PROVIDERS: PCP Internal Medicine; Visit Provider Student in an Organized Health Care Education/Training Program
DX: M05.9 Rheumatoid arthritis with rheumatoid factor, unspecified (principal); Z79.899 Other long term (current) drug therapy
CPT/HCPCS: 36415; 80053; 86481

== ENCOUNTER 2025-03-10 14:48 | Outpatient (REF) | payer OTHER, SELFPAY | END 2025-03-10 14:49 | disposition home or self-care (01) | LOC: HO.RHESR 14:48 | PROVIDERS: PCP Internal Medicine; Visit Provider Student in an Organized Health Care Education/Training Program | DX: M05.9 Rheumatoid arthritis with rheumatoid factor, unspecified (principal); Z79.620 Long term (current) use of immunosuppressive biologic; Z79.899 Other long term (current) drug therapy | CPT/HCPCS: 20604; J2003; J3301 ==

== ENCOUNTER 2025-03-10 14:48 | Outpatient (AMB) | payer OTHER, SELFPAY ==
--- NOTE | 2025-03-10 15:06 | MHC.OFFVIS ---
Vital Signs 03/10/25 15:21 Height 5 ft 5 in Weight 154 lb 5.177 oz BMI 25.7 BP 102/60 Blood Pressure Location Lt brachial Position Sitting Pulse 70 Pulse Source Pulse Oximeter Pulse Oximetry (%) 100 Oxygen Delivery Method Room Air Intake Visit Reasons: US joint effusion Intake Note: Patient presents today for US joint effusion follow up. 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 Required: No Information Interpreted: non-clinical & clinical Accompanied by: Self / Same As Patient Allergies latex Allergy (Mild, Verified 03/10/25 15:21) Rash Medication List - Last Reconciled 03/10/25 by Rosie Grant MD ascorbic acid (vitamin C) 1 g PO DAILY ascorbic acid-collagen 30-833.3 mg (Collagen Skin Renewal) tabs PO biotin mcg PO cholecalciferol (vitamin D3) 25 mcg PO BID etanercept (Enbrel SureClick) 50 mg subcut QWEEK ferrous sulfate 325 mg PO BID hydroxychloroquine Take 2 tabs daily x5 days a week and 1 tab daily x2 days a week ibuprofen 600 mg PO TID HPI Comments Details: Patient is a 45 y.o. female with SLE/RA overlap and polyarticular OA (hands) here today for follow up Interval History: Patient last seen 01/03/25 with me. - On hydroxychloroquine 400 mg daily x5 days a week and 200 mg daily x2 days a week - MRI showed effusion over associated with the 3rd MCP - Neck pain, radiating down to hand with numbness - Started on Enbrel Today - On Hydroxychloroquine 400 mg daily x5 days a week and 200 mg daily x2 days a week and Enbrel 50mg SC every week - Here today for US procedure Rheumatologic History: SLE: onset 02/2023 (swollen hands on exam, +++SATINDER +DsDNA +++SSa low C3 & low C4) RF: onset 02/2023+++CCP -ve RF HCQ 11/2023 Methotrexate - did not tolerate, tired Initial history: This is a 43-year-old female who presents for evaluation of a positive SATINDER. For the last 6-7 months patient has been having pain in her hands, feet, swelling of her right 3rd MCP. Morning stiffness her hands and feet lasting hours. She has been taking ibuprofen 800 mg Twice daily for her joint pain with some improvement. She was prescribed a prednisone taper briefly dramatic relief but she did not feel well while taking it. She denies any other symptoms such as skin rashes, fevers, weight loss. Denies any blood or frothy urine. Denies any current oral ulcers. Denies any significant hair loss. Patient has melasma on her face since her . She has known iron-deficiency anemia that has been attributed to heavy menses and copper IUD. Not want a medicated IUD as she wanted to avoid hormones. She is unaware of any family history of an autoimmune rheumatic disease. Denies any history of DVT/PE. 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 Review of Systems Const All systems reviewed & are unremarkable except as noted in HPI and below Physical Exam Exam Exam: deferred Vital Signs: Last Vital Signs Pulse 70 03/10/25 15:21 BP 102/60 03/10/25 15:21 Pulse Ox 100 03/10/25 15:21 Oxygen Delivery Method Room Air 03/10/25 15:21 BMI result Body Mass Index 25.7 Office Procedures AMB Joint Injection/Aspiration Joint Injection/Aspiration Details: Study Type: Limited Ultrasound with Guidance of needle placement Indication: MRI showing Right 3rd MCP effusion Study Site: Right hand, right 3rd MCP Equipment: Go [email or web address] Findings: Orthogonal views of the dorsal aspect of the 3rd MCP were obtained in grayscale and Doppler. Evidence of mild joint effusion noted but not enough to receive aspiration. Mild synovial hypertrophy without Doppler signal Procedure was explained to the patient and informed consent was obtained. ? Risks associated with the procedure were discussed with the patient including but not limited to bleeding, infection, drug reactions and reactions to the topical anesthetic. Patient made aware of signs to look out for infectious complications. The area of interest was identified and confirmed with patient. ?The procedure was done under sterile conditions. The area was then anesthetized using ethyl chloride spray. 40 mg Kenalog with 1 cc 1% lidocaine was injected without issue. ?Minimal to no bleeding. ?Patient tolerated procedure. Impressions: Synovial hypertrophy noted to the right 3rd MCP with mild joint effusion. Not able to aspirate. Successful injection of the 3rd MCP under ultrasound guidance Primary Site: Other (Right 3rd MCP) Prep: site was prepped using sterile technique and ethochloride spray was applied Injected: 40 mg of, Kenalog, with 1 mL of, 1% plain Lidocaine and in the joint Procedure: The patient tolerated the procedure well Coding - Small Joint Additional procedure code (CPT) needed (54370) Office Meds lidocaine (PF) 10 mg/mL (1 %) injection solution Performing Provider: Rosie Grant MD Performing Location: [facility] Administered by: Rosie Grant MD on 03/31/25 11:46 Dose Route Admin Location Dispensed Lot Number Expiration Date [facility] Pain Management Nurse 0.5 mL Infiltration right 3rd MCP 2 mL [id number] 04/23/28 41779-035-25 [employer] Total Dispensed Waste 2 mL 75 % Kenalog 40 mg/mL suspension for injection Performing Provider: Rosie Grant MD Performing Location: [facility] Administered by: Rosie Grant MD on 03/31/25 11:46 Dose Route Admin Location Dispensed Lot Number Expiration Date [facility] Pain Management Nurse 40 mg intra-articular right 3rd MCP 1 mL [id number] 08/21/26 [address]-1 [employer] Total Dispensed Waste 1 mL 0 % Assessment & Plan Assessment & Plan (1) Seropositive rheumatoid arthritis: Comment: onset 02/2023+++CCP -ve RF HCQ 11/2023 PDN tapered off 02/2024 Code(s): M05.9 - Rheumatoid arthritis with rheumatoid factor, unspecified Category: Medical Plan: #Seropositive RA Patient is a 45-year-old female with seropositive rheumatoid arthritis currently on hydroxychloroquine and Enbrel. Here today for ultrasound evaluation of her right 3rd MCP noted to have an effusion on an MRI. Status post steroid injection to the right 3rd MCP today Plan procedure only Orders: Orders US Gd Asp Inj Intmd Joint RT 03/10/25 M05.9 - Rheumatoid arthritis with rheumatoid factor, unspecified AMB Joint Injection/Aspiration 03/10/25 M05.9 - Rheumatoid arthritis with rheumatoid factor, unspecified Medications: New lidocaine (PF) 0.5 mL Infiltration ONCE 2 mL 0RF M05.9 - Rheumatoid arthritis with rheumatoid factor, unspecified Kenalog (triamcinolone acetonide) 40 mg intra-articular ONCE 1 mL 0RF NS M05.9 - Rheumatoid arthritis with rheumatoid factor, unspecified Coding Level of Care Code Procedure Only Diagnoses Seropositive rheumatoid arthritis M05.9 CPT Codes Coding - 91751 - Small joint: 10946 - Small Joint ([id number])
[2025-03-10 15:21] VITALS: BP 102/60; PULSE 70; O2SAT 100; BMI 25.7
--- OUTSIDE RECORDS SUMMARY | 2025-03-10 16:10 | XMS_ITS | Clinical Summary ---
Author Organization [facility] Address [address] [place] [address] Phone Care Team Providers Care Rural Mail Carrier Name Role Phone Ra Fan MD Primary [...] Noted Date Diagnosed Date Lupus (systemic lupus erythematosus) 05/11/2024 Assessment & Plan (05/11/2024 9:38 AM EST): Continue hydroxychloroquine as prescribed by rheumatology Rheumatoid arthritis 05/11/2024 Assessment & Plan (05/11/2024 9:38 AM EST): Having some pain/stiffness/swelling particularly in the right hand. She will follow-up with her process area supervisor at [facility]. Iron deficiency anemia 07/24/2023 Overview (02/23/2024): with [...] 3yo and older 02/05/2023 Influenza, Unspecified 01/26/2023 [email or web address] SARS-CoV-2 COVID-19, mRNA, LNP-S, preservative free 11/17/2020,10/26/2020 Surgical History Surgery Date Site/Laterality Comments OTHER SURGICAL HISTORY PROCEDURE: DENIES PREVIOUS SURGERY Medical History Medical History Date Comments History of anemia DX:History of anemia History of vitamin D deficiency DX:History of vitamin D deficiency Encounter for insertion of P araGard IUD 12/07/2018 DX:Encounter for insertion o f ParaGard IUD Lupus Rheumatoid arthritis (CMS/[facility] C V24, CMS/[facility] V28) Anemia Family History Medical History Relation [...] Years Used Date Smoking Tobacco: Former Cigarettes 0.3 Q uit: 03/23/2012 Smokeless Tobacco: Never Tobacco [...] loved ones. For example, child care center administrator or elderly care for an older adult? [...] 3 3 Date Outcome GA Total Labor Labor/3rd Weight Sex Type Anes PTL Juliet A1 [...] Care Team (Late st Contact Info) Description 04/19/2025 9:20 AM EST Appointment Radiology Department - [address] [phone] 05/17/2025 12:00 PM EST Office Visit Adult Medicine [address] [phone] Ra Fan MD [address] [place] [address] 06/12/2025 9:00 AM EDT Office Visit Obstetrics & Gynecology - [facility] [address] [place] [address] Haley Lopez, CNM [address] [place] [address] Health Maintenance Due Date Last Done Comments [...] LAB MOLECULAR DIAGNOSTICS ORD ERABLES Final Result [facility] [address] [place] [address], * Hepatitis C antibody (05/11/2024 9:53 AM EST) Hepatitis C Antibody Negative Negative LAB CHEMISTRY METHOD 05/11/2024 12:54 PM EST [facility] Blood Venous blood specimen / Unknown Venipuncture / Unknown 05/11/2024 9:53 AM EST 05/11/2024 9:53 AM EST us Ra Fan MD LAB BLOOD ORDERA BLES Final Result [facility] [address] [place] [address], [place] [phone] * Lipid panel with reflex to direct LDL (05/11/2024 9:53 AM EST) Cholesterol 160 0 - 200 mg/dL LAB CHEMISTRY METHOD 05/11/2024 12:57 PM EST [facility] Triglycerides 44 0 - 150 mg/dL LAB CHEMISTRY METHOD 05/11/2024 12:57 PM EST [facility] HDL 55 >=40 mg/dL LAB CHEMISTRY METHOD 05/11/2024 12:57 PM EST [facility] LDL Calculated 96 0 - 100 mg/dL LAB CHEMISTRY METHOD 05/11/2024 12:57 PM EST [facility] VLDL Cholesterol Jah 8.8 mg/dL LAB CHEMISTRY METHOD 05/11/2024 12:57 PM EST [facility] Non HDL Chol. (LDL+VLDL) 105 <145 mg/dL LAB CHEMISTRY METHOD 05/11/2024 12:57 PM EST [facility] Chol/HDL Ratio 2.9 0.0 - 4.4 LAB CHEMISTRY METHOD 05/11/2024 12:57 PM EST [facility] Blood Venous blood specimen / Unknown Venipuncture / Unknown 05/11/2024 9:53 AM EST 05/11/2024 9:53 AM EST aR Fan MD LAB BLOOD ORDERA BLES Final Result [facility] [address] [place] [address], [place] [phone] * MG Mammo Digital Screening w Dionisio [...] is recommended in 1 year. Mammo Location: [facility], [address] [place] [address], [id number], . -------- FINAL REPORT -------- Dictated By: Ric Hemran Dictated Date: 04/13/2024 12:01 ET Assigned Physician: Ric Herman Reviewed and Electronically Signed By: Ric Herman Signed Date: 04/13/2024 12:07 ET Workstation ID: [id number] Transcribed By: Self Edit Transcribed Date: 04/13/2024 [...] is recommended in 1 year. Mammo Location: [facility], [address] [place] [address], [id number], . -------- FINAL REPORT -------- Dictated By: Ric Herman Dictated Date: 04/13/2024 12:01 ET Assigned Physician: Ric Herman Reviewed and Electronically Signed By: Ric Herman Signed Date: 04/13/2024 12:07 ET Workstation ID: [id number] Transcribed By: Self Edit Transcribed Date: 04/13/2024 12:01 ET Ra Fan MD IMG BI PROCEDURE S Final Result from Last 3 Months or Most Recently Relevant to Health Maintenance Insurance [employer] Care Teams Rural Mail Carrier Relationship Specialty Start Date End Date Ra Fan MD [address] [facility] [place], [place] PCP - General Internal Medicine 10/14/21
== END 2025-03-10 15:40 | disposition home or self-care (01) ==
LOC: HO.RHES 14:48
PROVIDERS: PCP Internal Medicine; Visit Provider Student in an Organized Health Care Education/Training Program
DX: M05.79 Rheumatoid arthritis with rheumatoid factor of multiple sites without organ or systems involvement (principal); M67.241 Synovial hypertrophy, not elsewhere classified, right hand
CPT/HCPCS: 20604